=== PATIENT | female | born 1965 | race Caucasian/White ===

== ENCOUNTER → 2017-01-11 | Outpatient (RCR) | payer MEDICARE ==
--- OUTSIDE RECORDS SUMMARY | 2016-10-13 10:51 | XMS REPORT | Continuity of Care Document ---
Author Author [facility] Organization [facility] Address Unknown Phone Unavailable Care Team Providers Care Reordering Clerk Name Role Phone Liu Manzo PCP [phone] Source Comments Some departments are not documenting in the electronic medical record. If you do not see the information that you expected, contact Release of Information in the Health Information Management department at [phone] for further assistance in locating additional records.[facility] Active Allergies and Adverse Reactions Allergen Noted Date Severity Reactions Comments Celexa 09/13/2012 DIARRHEA, NAUSEA AND VOMITING, DIZZINESS Penicillins 10/09/2012 EDEMA Hands and arms Current Medications Prescription Sig. Disp. Refills Start End Date Status Date metFORMIN (GLUCOPHAGE) Take 500 mg by mouth Active 500 mg tablet twice daily with meals. meloxicam(+) (MOBIC) 15 Take 15 mg by mouth Active mg tablet daily. BLOOD SUGAR DIAGNOSTIC Use as directed as Active (CONTOUR TEST STRIPS directed. [facility]) budesonide/formoterol Inhale 2 Puffs by mouth Active (SYMBICORT) 160/4.5 mcg daily. HFAA inhalation albuterol 0.083% Inhale 2.5 mg solution as Active (PROVENTIL; VENTOLIN) 2.5 directed four times daily mg /3 mL (0.083 %) as needed. Used less nebulizer solution often than albuterol MDI, just when sick with respiratory infections (including pneumonia). albuterol (PROVENTIL; Inhale 2 Puffs by mouth Active VENTOLIN) 90 every 6 hours as needed. mcg/actuation inhaler 0-1-2-3-4x qd ca. 0-8 days each month, needed-used especially with URIs traMADol (ULTRAM) 50 mg Take 50 mg by mouth twice Active tablet daily as needed. pantoprazole DR Take 40 mg by mouth Active (PROTONIX) 40 mg tablet daily. folic acid (FOLVITE) 1 mg Take 1 Tab by mouth 90 Tab 1 03/15/20 Active tablet daily. 13 Cholecalciferol (Vitamin Take 1 Cap by mouth Active D3) (VITAMIN D-3) 2,000 daily. unit cap DULoxetine DR (CYMBALTA) Take 60 mg by mouth Active 60 mg capsule daily. METOPROLOL TARTRATE PO Take 1 Tab by mouth Active daily. cycloSPORINE(+) Place 1 Drop into or Active (RESTASIS) 0.05 % around eye(s) twice ophthalmic solution daily. loratadine (CLARITIN) 10 Take 10 mg by mouth Active mg tablet daily. montelukast (SINGULAIR) Take 10 mg by mouth as Active 10 mg tablet Needed. hydroxychloroquine Take 1 Tab by mouth twice 180 Tab 1 12/08/19 Active (PLAQUENIL) 200 mg tablet daily. 16 Active Problems Problem Noted Date Hypoglycemia 12/08/2015 Achilles tendonitis, bilateral, Rt. > Lt. 12/08/2015 Obesity 04/26/2013 Hypertension 04/26/2013 Migraine headache 04/26/2013 Spinal stenosis, lumbar 04/26/2013 Insomnia 04/26/2013 Overview: nonrestorative sleep but not primary insomnia Panic attacks 04/26/2013 Carpal tunnel syndrome, Lt. 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 Asthma 04/26/2013 GERD (gastroesophageal reflux disease) 04/26/2013 Fatigue 01/04/2013 Undifferentiated connective tissue disease (HCC) 01/04/2013 Vitamin D insufficiency 10/01/2012 Osteoarthritis 09/24/2012 Resolved Problems Problem Noted Date Resolved Date Hypercholesterolemia 04/26/2013 12/08/2015 DM (diabetes mellitus), type 2 (HCC) 04/26/2013 12/08/2015 Social History Tobacco Use Types Packs/Day Years Used Date Current Every Day Smoker Cigarettes 0.8 20 Smokeless Tobacco: Never Used Tobacco Cessation: Ready to Quit: No; Counseling Given: No Comments: Alcohol Use Drinks/Week oz/Week Comments No Last Filed Vital Signs Vital Sign Reading Time Taken Blood Pressure 126/74 12/08/2015 2:57 PM CDT Pulse 84 12/08/2015 2:57 PM CDT Temperature 37 C (98.6 F) 12/08/2015 2:57 PM CDT Respiratory Rate 20 12/08/2015 2:57 PM CDT Height 1.619 m (5' 3.75") 12/08/2015 2:57 PM CDT Weight 88.089 kg (194 lb 3.2 oz) 12/08/2015 2:57 PM CDT Body Mass Index 33.61 12/08/2015 2:57 PM CDT Oxygen Saturation 100% 12/08/2015 2:57 PM CDT Plan of Care Health Maintenance Due Date Last Done Comments Physical (Comprehensive) 1972 Exam Pertussis Vaccine 1976 Tetanus Vaccine 1982 Cervical Cancer Screening 1986 Breast Cancer Screening 2005 Colorectal Cancer 2015 Screening Influenza Vaccine 04/28/2016 Hepatitis C Screening Completed 01/04/2013 Results from Last 3 Months Not on file
[~2017-01-11] MED LIST: ERGO400C PO; HYDR200T46 PO; MELO-198 PO; MTF500T PO; MTP100TCR PO; PNT40TEC PO
== END | disposition home or self-care (01) ==
PROVIDERS: ATTEND Orthopaedic Surgery
DX: M75.22 Bicipital tendinitis, left shoulder (principal); Z98.890 Other specified postprocedural states

== ENCOUNTER 2017-02-03 10:15 | Outpatient (RCR) | payer MEDICARE | END 2017-02-03 15:26 | disposition home or self-care (01) | PROVIDERS: ATTEND Orthopaedic Surgery | DX: M75.22 Bicipital tendinitis, left shoulder (principal); Z98.890 Other specified postprocedural states ==

== ENCOUNTER → 2019-04-12 | Outpatient (CLI) | payer MEDICARE | LOC: CARD 12:22 | PROVIDERS: ATTEND Family Medicine | DX: I35.0 Nonrheumatic aortic (valve) stenosis (principal) | CPT/HCPCS: 93306 ==

== ENCOUNTER 2022-08-03 13:21 | Inpatient (IN) | payer MEDICARE ==
[~2022-08-03] VITALS: Ht 157.4 cm; Wt 102.9 kg
--- NOTE | 2022-08-03 13:56 | ED Cardiac General ---
History of Present Illness General Chief Complaint: Cardiac/General Problems Stated Complaint: HIGH BLOOD PRESSURE | EKG READING Source: patient Exam Limitations: no limitations History of Present Illness Date Seen by Provider: Aug 03, 2022 Time Seen by Provider: 13:42 Initial Comments This is a 56-year-old female with a history of hypertension, hgy-pypuggf-umblscppv diabetes, hyperlipidemia, obesity, GERD who presented to the ER from [facility] for concerns of epigastric discomfort and EKG changes. Patient states that she was following up with walk-in clinic today and was instructed to go to the emergency department due to abnormal findings on her EKG. States that she has a history of GERD and today symptoms feel just like previous episodes of acid reflux just more severe. Her symptoms started last night. She has not taken her pantoprazole or metoprolol for the past couple days. She had 1 episode of vomiting yesterday and was concerned that she may vomit if she took her medications. States that she has been through multiple providers and feels her care is disorganized at the moment. She was supposed to be started on lisinopril and a cholesterol medication but states that she was never prescribed either of these. She has not been evaluated again since she was supposed to start these 2 new medications, so she is unsure of what her baseline is other than knowing she has hypertension. Upon arrival she is feeling better, denies fever, chills, cough, shortness of breath, chest pain, epigastric pain, nausea, vomiting, abdominal pain. Allergies and Home Medications Allergies Coded Allergies: Penicillins (Verified Allergy, Unknown, 08/03/22) Patient Home Medication List Home Medication List Reviewed: Yes Cholecalciferol (Vitamin D) 400 Unit Capsule, 400 UNIT PO DAILY, (Reported) Entered as Reported by: ESPERANZA AHMADI on 09/28/13 08 Hydroxychloroquine Sulfate (Plaquenil Nf) 200 Mg Tab, 200 MG PO BID, (Reported) Entered as Reported by: ESPERANZA AHMADI on 09/28/13809 Meloxicam (Meloxicam) 7.5 Mg Tablet, 1 EACH PO DAILY, (Reported) Entered as Reported by: ESPERANZA AHMADI on 09/28/13 08 Metformin Hcl (Metformin 500 Mg) 500 Mg Tablet, 1 EACH PO BID WITH MEALS, (Reported) Entered as Reported by: ESPERANZA AHMADI on 09/28/13 0810 Metoprolol Succinate (Toprol Xl 100MG) 100 Mg Tab.sr.24h, 1 EACH PO DAILY, (Reported) Entered as Reported by: ESPERANZA AHMADI on 09/28/13 08 Pantoprazole Sodium (Protonix) 40 Mg Tablet.dr, 1 TAB PO DAILY, (Reported) Entered as Reported by: ESPERANZA AHMADI on 09/28/13 08 Review of Systems Review of Systems Constitutional: see HPI Past Iroebqj-Auxvxt-Jgmfft Hx Past Medical History Asthma Gastroesophageal Reflux Depression Physical Exam Vital Signs Vital Signs - First Documented 08/03/22 13:29 Temp 36.6 Pulse 76 Resp 21 B/P (MAP) 177/101 (126) Pulse Ox 96 O2 Delivery Room Air Capillary Refill : Height, Weight, BMI Height: 5'2" Weight: 185lbs. oz. 83.983255mw; BMI Method:Stated General Appearance: No Apparent Distress, WD/WN HEENT: PERRL/EOMI, Normal ENT Inspection, Pharynx Normal, Moist Mucous Membranes Neck: Full Range of Motion, Normal Inspection, Supple Respiratory: Lungs Clear, Normal Breath Sounds, No Accessory Muscle Use, No Respiratory Distress Cardiovascular: Regular Rate, Rhythm, No Murmur, Normal Peripheral Pulses Gastrointestinal: Normal Bowel Sounds, Non Tender, Soft Extremity: Normal Capillary Refill, Normal Inspection, Normal Range of Motion Neurologic/Psychiatric: Alert, Oriented x3, No Motor/Sensory Deficits, Normal Mood/Affect Skin: Normal Color, Warm/Dry Progress/Results/Core Measures Results/Orders Lab Results Laboratory Tests Test 08/03/22 13:36 Range/Units White Blood Count 12.7 H 4.3-11.0 10^3/uL Red Blood Count 5.22 H 3.80-5.11 10^6/uL Hemoglobin 15.7 11.5-16.0 g/dL Hematocrit 47 35-52 % Mean Corpuscular Volume 89 80-99 fL Mean Corpuscular Hemoglobin 30 25-34 pg Mean Corpuscular Hemoglobin Concent 34 32-36 g/dL Red Cell Distribution Width 12.3 10.0-14.5 % Platelet Count 355 130-400 10^3/uL Mean Platelet Volume 9.8 9.0-12.2 fL Immature Granulocyte % (Auto) 1 % Neutrophils (%) (Auto) 74 42-75 % Lymphocytes (%) (Auto) 19 12-44 % Monocytes (%) (Auto) 7 0-12 % Eosinophils (%) (Auto) 0 0-10 % Basophils (%) (Auto) 0 0-10 % Neutrophils # (Auto) 9.4 H 1.8-7.8 10^3/uL Lymphocytes # (Auto) 2.4 1.0-4.0 10^3/uL Monocytes # (Auto) 0.9 0.0-1.0 10^3/uL Eosinophils # (Auto) 0.0 0.0-0.3 10^3/uL Basophils # (Auto) 0.1 0.0-0.1 10^3/uL Immature Granulocyte # (Auto) 0.1 0.0-0.1 10^3/uL Prothrombin Time 13.2 12.2-14.7 SEC INR Comment 1.0 0.8-1.4 Activated Partial Thromboplast Time 26 24-35 SEC D-Dimer < 0.27 0.00-0.49 UG/ML Sodium Level 135 135-145 MMOL/L Potassium Level 4.0 3.6-5.0 MMOL/L Chloride Level 100 98-107 MMOL/L Carbon Dioxide Level 25 21-32 MMOL/L Anion Gap 10 5-14 MMOL/L Blood Urea Nitrogen 7 7-18 MG/DL Creatinine 0.69 0.60-1.30 MG/DL Estimat Glomerular Filtration Rate 102 BUN/Creatinine Ratio 10 Glucose Level 135 H 70-105 MG/DL Calcium Level 9.5 8.5-10.1 MG/DL Corrected Calcium 9.5 8.5-10.1 MG/DL Magnesium Level 1.7 1.6-2.4 MG/DL Total Bilirubin 0.4 0.1-1.0 MG/DL Aspartate Amino Transf (AST/SGOT) 111 H 5-34 U/L Alanine Aminotransferase (ALT/SGPT) 47 0-55 U/L Alkaline Phosphatase 84 40-136 U/L Total Creatine Kinase 1404 H 29-168 U/L Creatine Kinase MB 144.1 *H <6.6 NG/ML Myoglobin 249.8 H 10.0-92.0 NG/ML Troponin I 13.202 *H <0.028 NG/ML B-Type Natriuretic Peptide 69.9 <100.0 PG/ML Total Protein 7.3 6.4-8.2 GM/DL Albumin 4.0 3.2-4.5 GM/DL Lipase 22 8-78 U/L My Orders Orders - GARY BURGOS LABOR RELATIONS TEACHER Cbc With Automated Diff (08/03/22 13:49) Magnesium (08/03/22 13:49) Chest 1 View, Ap/Pa Only (08/03/22 13:49) Ekg Tracing (08/03/22 13:49) Comprehensive Metabolic Panel (08/03/22 13:49) Myoglobin Serum (08/03/22 13:49) Protime With Inr (08/03/22 13:49) Partial Thromboplastin Time (08/03/22 13:49) O2 (08/03/22 13:49) Monitor-Rhythm Ecg Trace Only (08/03/22 13:49) Ed Iv/Invasive Line Start (08/03/22 13:49) Creatine Kinase (08/03/22 13:49) Creatine Kinase Mb (08/03/22 13:49) Lipase (08/03/22 13:49) Bnp [place] (08/03/22 13:49) Fibrin Degradation Products (08/03/22 13:49) Troponin I [place] (08/03/22 13:49) Metoprolol Tartrate Injection (Lopressor (08/03/22 14:00) Pantoprazole Injection (Protonix Injecti (08/03/22 14:00) Clopidogrel Tablet (Plavix Tablet) (08/03/22 15:00) Enoxaparin Injection (Lovenox Injection) (08/03/22 15:00) Aspirin Chewable Tablet (Baby Aspirin Ch (08/03/22 15:15) Ed Admission (Communication) (08/03/22 15:04) Medications Given in ED Current Medications Medications Dose Ordered Sig/[place] Route Start Time Stop Time Status Last Admin Dose Admin Enoxaparin Sodium 90 mg ONCE ONCE SC 08/03/22 15:00 08/03/22 15:01 DC 08/03/22 14:59 90 MG Metoprolol Tartrate 5 mg ONCE ONCE IV 08/03/22 14:00 08/03/22 14:01 DC 08/03/22 14:00 5 MG Pantoprazole 40 mg ONCE ONCE IV 08/03/22 14:00 08/03/22 14:01 DC 08/03/22 13:59 40 MG Vital Signs/I&O 08/03/22 13:29 Temp 36.6 Pulse 76 Resp 21 B/P (MAP) 177/101 (126) Pulse Ox 96 O2 Delivery Room Air Progress Progress Note : Progress Note Upon arrival reports no epigastric pain, chest pain, nor acid reflux. Reports symptoms have resolved. She has significant coronary risk HTN, HLD, DM, Obesity, and smoker. States she was to be started on Lisinopril and a Statin but was never ordered. She is hypertensive in ED, but has not taken her medications in 2 days. Also has not taken Protonix in 2 days which may also attribute to symptoms. However with coronary risk will initiate cardiac workup. EKG unremarkable. Labs show significantly elevated cardiac markers including troponin at 13. Discussed with Dr. Menchaca with cardiology, would like pt. to have Lovenox 1mg/kg and ASA 324mg. Will plan for cardiac cath. Would like repeat troponin in one hour. Updated patient regarding plan for admission and likely cardiac catheterization, she is agreeable with plan of care at this time. Initial ECG Impression Date: Aug 03, 2022 Initial ECG Impression Time: 14:17 Initial ECG Rate: 66 Initial ECG Rhythm: Normal Sinus Initial ECG Intervals: Normal Initial ECG Impression: Nonspecific Changes Initial ECG Comparisson: No Previous ECG Available Diagnostic Imaging Diagonstic Imaging: Xray Plain Films/CT/US/NM/MRI: chest Comments [facility]. [place], [place] NAME: WILDAAMANDA R [facility] REC#: [id number] PT STATUS: ADM IN : 1965 PHYSICIAN: GARY BURGOS APRN ADMIT DATE: 08/03/22/ICU Signed Date of Exam:08/03/22 CHEST 1 VIEW, AP/PA ONLY INDICATION: Chest pain. Frontal chest obtained at 2:19 p.m. and compared with 09/05/2012. FINDINGS: Heart is borderline in size. Mediastinal silhouette is unremarkable. There is mild central vascular prominence, without discrete consolidation or pneumothorax or pleural fluid. IMPRESSION: Mild central vascular prominence without focal consolidation or pneumothorax or pleural fluid. Dictated by: Dictated on workstation # [id number] Dict: 08/03/22 1424 Trans: 08/03/22 1718 [id number] Interpreted by: SINDI VALERO MD Electronically signed by: SINDI VALERO MD 08/03/22 1718 Reviewed: Reviewed by Me Departure Communication (Admissions) Time/Spoke to Admitting Phy: 14:45 Dr. Joe Time/Spoke to Consulting Phy: 14:40 Dr. Menchaca Impression Primary Impression: GERD (gastroesophageal reflux disease) Disposition: ADMITTED INPATIENT Condition: Stable Admissions Decision to Admit Reason: Admit from ER (General) Decision to Admit/Date: Aug 03, 2022 Time/Decision to Admit Time: 14:40 Departure-Patient Inst. Referrals: [facility] (PCP/Family) Primary Care Physician Copy Copies To 1: [facility]/GARY ALMEIDA LABOR RELATIONS TEACHER Aug 03, 2022 13:56
[2022-08-03] MEDS ORDERED: PANTOPRAZOLE 40 MG (PROTONIX) VIAL IV ONE (14:00)
[2022-08-03] MEDS ORDERED: meTOprolol 5 MG/5 ML (LOPRESSOR) VIAL IV ONE (14:00)
[2022-08-03 14:16] LABS: BASOPHILS # (AUTO) 0.1 10^3/uL (0.0-0.1); BASOPHILS % (AUTO) 0 % (0-10); EOSINOPHILS % (AUTO) 0 % (0-10); HEMATOCRIT 47 % (35-52); HEMOGLOBIN 15.7 g/dL (11.5-16.0); LYMPHOCYTES # (AUTO) 2.4 10^3/uL (1.0-4.0); LYMPHOCYTES % (AUTO) 19 % (12-44); MEAN CORPUSCULAR HEMOGLOBIN 30 pg (25-34); MEAN CORPUSCULAR HGB CONC 34 g/dL (32-36); MEAN CORPUSCULAR VOLUME 89 fL (80-99); MEAN PLATELET VOLUME 9.8 fL (9.0-12.2); MONOCYTES # (AUTO) 0.9 10^3/uL (0.0-1.0); MONOCYTES % (AUTO) 7 % (0-12); NEUTROPHILS # (AUTO) 9.4 10^3/uL (1.8-7.8); NEUTROPHILS % (AUTO) 74 % (42-75); PLATELET COUNT 355 10^3/uL (130-400); WHITE BLOOD COUNT 12.7 10^3/uL (4.3-11.0)
[2022-08-03 14:21] LABS: CALCIUM 9.5 MG/DL (8.5-10.1)
[2022-08-03 14:22] LABS: PROTHROMBIN TIME PATIENT 13.2 SEC (12.2-14.7)
[2022-08-03 14:23] LABS: TOTAL PROTEIN 7.3 GM/DL (6.4-8.2)
[2022-08-03 14:25] LABS: BILIRUBIN,TOTAL 0.4 MG/DL (0.1-1.0)
[2022-08-03 14:26] LABS: CREATININE SERUM 0.69 MG/DL (0.60-1.30)
--- NOTE | 2022-08-03 14:27 | Diagnostic Imaging Report ---
INDICATION: Chest pain. Frontal chest obtained at 2:19 p.m. and compared with 09/05/2012. FINDINGS: Heart is borderline in size. Mediastinal silhouette is unremarkable. There is mild central vascular prominence, without discrete consolidation or pneumothorax or pleural fluid. IMPRESSION: Mild central vascular prominence without focal consolidation or pneumothorax or pleural fluid. Dictated by: Dictated on workstation # [id number]
[2022-08-03 14:29] LABS: MAGNESIUM 1.7 MG/DL (1.6-2.4)
[2022-08-03 14:46] LABS: CREATINE KINASE MB 144.1 NG/ML (<6.6)
[2022-08-03] MEDS ORDERED: CLOPIDOGREL 300 MG (PLAVIX) TABLET PO ONE (15:00)
[2022-08-03] MEDS ORDERED: ENOXAPARIN 100 MG/1 ML (LOVENOX) SYR SC ONE (15:00)
[2022-08-03] MEDS ORDERED: ASPIRIN 81 MG CHEW (CHILDREN'S ASA) PO ONE (15:15)
[2022-08-03] MEDS ORDERED: LIDOCAINE 1% INJ 30 ML (XYLOCAINE) VIAL ONE (16:17)
[2022-08-03] MEDS ORDERED: NS IV 1000 ML 1,000 ML ONE (16:17)
[2022-08-03] MEDS ORDERED: HEParin (CATH LAB) 2,000 ML IV ONE (16:17)
[2022-08-03 16:45] VITALS: BP 153/101
[2022-08-03] MEDS ORDERED: PATIENT MAY USE OWN MEDS, ALL PO SCH (16:45)
--- NOTE | 2022-08-03 17:30 | Consultation-Cardiology ---
HPI-Cardiology Cardiology Consultation: Date of Consultation 08/03/22 Date of Admission 08/03/22 Attending Physician [facility] Admitting Physician Admitting Physician: Yanna Joe MD Attending Physician: Yanna Joe MD Consulting Physician DAHLIA CORTES JR, MD HPI: Time Seen by a Provider: 17:21 Chief Complaint: REASON FOR CONSULTATION: NSTEMI. I had the pleasure of seeing Ev in the intensive care unit at [facility] in [place], [place] afternoon. She has no known history of coronary artery disease but has cardiac respecters of hypertension, hyperlipidemia and cigarette smoking. This past weekend she started developing some upper respiratory symptoms. She had some congestion and a sore throat. She thought that she may have contracted the flu. The symptoms persisted over the weekend and into Monday morning. Then yesterday she developed a burning sensation in her jaw bilaterally that radiated down towards her throat and into her chest. She took some Tylenol Cold medicine which seemed to help somewhat. She spent most of the day in bed. She drank some water but this did not change the discomfort. She thought the symptoms were related to her esophageal reflux disease. At 1 point this seemed to be radiating into her arms. She did not seek immediate medical attention. Then this morning she went to [facility] who did an EKG and sent her to the emergency room. During her evaluation in the emergency room, she was found to have an abnormal troponin level and a cardiology consultation was requested. She was treated with aspirin and therapeutic dose of subcutaneous Lovenox in the emergency room. She still have some mild discomfort in her chest at this time. She has chronic dyspnea on exertion which she relates is due to her obesity, cigarette smoke and lack of exercise. She denies paroxysmal nocturnal dyspnea, tinea, palpitations, lightheadedness, syncope, or ankle edema. Certain portions of this document may have been dictated utilizing voice recognition technology. Inherent to this technology, typographical and gra mmatical errors may exist. As much as I am diligent to identify and correct these mistakes, some errors may remain in the document. Review of Systems-Cardiology Review of Systems Other comments Review of 10 organ systems is as per the history of present illness, otherwise negative. NJA-Ijofrg-[place] Hx Patient Social History Marrital Status: Smoking Status: Current Everyday Smoker Have you traveled recently?: No Alcohol Use?: No Pt feels they are or have been: No Tobacco type used: Cigarettes Past Medical History PMH As described under Assessment. Family Medical History Family Medical History: The patient does not know of any family history of premature coronary artery disease in first-degree relatives. Allergies and Home Medications Allergies Coded Allergies: Penicillins (Verified Allergy, Unknown, 08/03/22) Patient Home Medication List Home Medication List Reviewed: Yes Cholecalciferol (Vitamin D) 400 Unit Capsule, 400 UNIT PO DAILY, (Reported) Entered as Reported by: ESPERANZA AHMADI on 09/28/13809 Hydroxychloroquine Sulfate (Plaquenil Nf) 200 Mg Tab, 200 MG PO BID, (Reported) Entered as Reported by: ESPERANZA AHMADI on 09/28/13809 Meloxicam (Meloxicam) 7.5 Mg Tablet, 1 EACH PO DAILY, (Reported) Entered as Reported by: ESPERANZA AHMADI on 09/28/13809 Metformin Hcl (Metformin 500 Mg) 500 Mg Tablet, 1 EACH PO BID WITH MEALS, (Reported) Entered as Reported by: ESPERANZA AHMADI on 09/28/13809 Metoprolol Succinate (Toprol Xl 100MG) 100 Mg Tab.sr.24h, 1 EACH PO DAILY, (Reported) Entered as Reported by: ESPERANZA AHMADI on 09/28/13809 Pantoprazole Sodium (Protonix) 40 Mg Tablet.dr, 1 TAB PO DAILY, (Reported) Entered as Reported by: ESPERANZA AHMADI on 09/28/13809 Exam Vital Signs Vital Signs Date Time Temp Pulse Resp B/P (MAP) Pulse Ox O2 Delivery O2 Flow Rate FiO2 08/03/22 17:08 68 08/03/22 17:00 145/100 (115) 92 Room Air 08/03/22 16:45 21 08/03/22 13:29 36.6 Physical Exam General: Alert. No acute distress. Well nourished and appears stated age. She is obese. Eye: Extraocular movements are intact. Conjunctivae are clear. There are no xanthelasma. HENT: Normocephalic. Atraumatic. Carotid pulsations 2/2 without bruits. Neck: Jugular venous pressure does not appear elevated. No thyromegaly appreciated. Respiratory: Lungs are clear to auscultation. Respirations are non-labored. Breath sounds are equal. Symmetrical chest wall expansion. Cardiovascular: Normal rate. Regular rhythm. No murmur. No gallop. Point of maximal impulse is not appear displaced. Good pulses equal in all extremities. No edema. Gastrointestinal: Soft. Normal bowel sounds. Skin: Skin turgor is normal. There is no pallor. Musculoskeletal: No kyphosis or scoliosis appreciated. Neurologic: Alert and oriented to person, place, time. Cranial nerves 3-12 appear grossly intact. The patient has good motor tone strength in the upper and lower extremities bilaterally. Psychiatric: Cooperative. Appropriate mood & affect. Labs Laboratory Tests Test 08/03/22 13:36 08/03/22 15:36 08/03/22 17:57 Range/Units White Blood Count 12.7 H 4.3-11.0 10^3/uL Red Blood Count 5.22 H 3.80-5.11 10^6/uL Hemoglobin 15.7 11.5-16.0 g/dL Hematocrit 47 35-52 % Mean Corpuscular Volume 89 80-99 fL Mean Corpuscular Hemoglobin 30 25-34 pg Mean Corpuscular Hemoglobin Concent 34 32-36 g/dL Red Cell Distribution Width 12.3 10.0-14.5 % Platelet Count 355 130-400 10^3/uL Mean Platelet Volume 9.8 9.0-12.2 fL Immature Granulocyte % (Auto) 1 % Neutrophils (%) (Auto) 74 42-75 % Lymphocytes (%) (Auto) 19 12-44 % Monocytes (%) (Auto) 7 0-12 % Eosinophils (%) (Auto) 0 0-10 % Basophils (%) (Auto) 0 0-10 % Neutrophils # (Auto) 9.4 H 1.8-7.8 10^3/uL Lymphocytes # (Auto) 2.4 1.0-4.0 10^3/uL Monocytes # (Auto) 0.9 0.0-1.0 10^3/uL Eosinophils # (Auto) 0.0 0.0-0.3 10^3/uL Basophils # (Auto) 0.1 0.0-0.1 10^3/uL Immature Granulocyte # (Auto) 0.1 0.0-0.1 10^3/uL Prothrombin Time 13.2 12.2-14.7 SEC INR Comment 1.0 0.8-1.4 Activated Partial Thromboplast Time 26 24-35 SEC D-Dimer < 0.27 0.00-0.49 UG/ML Sodium Level 135 135-145 MMOL/L Potassium Level 4.0 3.6-5.0 MMOL/L Chloride Level 100 98-107 MMOL/L Carbon Dioxide Level 25 21-32 MMOL/L Anion Gap 10 5-14 MMOL/L Blood Urea Nitrogen 7 7-18 MG/DL Creatinine 0.69 0.60-1.30 MG/DL Estimat Glomerular Filtration Rate 102 BUN/Creatinine Ratio 10 Glucose Level 135 H 70-105 MG/DL Calcium Level 9.5 8.5-10.1 MG/DL Corrected Calcium 9.5 8.5-10.1 MG/DL Magnesium Level 1.7 1.6-2.4 MG/DL Total Bilirubin 0.4 0.1-1.0 MG/DL Aspartate Amino Transf (AST/SGOT) 111 H 5-34 U/L Alanine Aminotransferase (ALT/SGPT) 47 0-55 U/L Alkaline Phosphatase 84 40-136 U/L Total Creatine Kinase 1404 H 29-168 U/L Creatine Kinase MB 144.1 *H <6.6 NG/ML Myoglobin 249.8 H 10.0-92.0 NG/ML Troponin I 13.202 *H 17.757 *H <0.028 NG/ML B-Type Natriuretic Peptide 69.9 <100.0 PG/ML Total Protein 7.3 6.4-8.2 GM/DL Albumin 4.0 3.2-4.5 GM/DL Lipase 22 8-78 U/L Triglycerides Level 128 <150 MG/DL Cholesterol Level 206 H < 200 MG/DL LDL Cholesterol Direct 151 H 1-129 MG/DL VLDL Cholesterol 26 5-40 MG/DL HDL Cholesterol 43 40-60 MG/DL Thyroid Stimulating Hormone (TSH) 1.96 0.35-4.94 UIU/ML ECG Impression ECG Comment Sinus rhythm with possible old inferior myocardial infarction. Diagnosis/Problems Diagnosis/Problems (1) Non-ST elevation myocardial infarction (NSTEMI), initial care episode Assessment & Plan: She appears to be suffering a non-ST elevation myocardial infarction. Her troponin elevation is quite significant. Fortunately, her echocardiogram shows a normal ejection fraction. Her electrocardiogram shows possible old inferior myocardial infarction but without acute ischemic changes. I recommend further evaluation with a cardiac catheterization. I have explained benefits and risks of the procedure to the patient and she is in agreement to proceed and has signed the consent form. She will be started on aspirin, beta- sharmaine and intensive dose statin medication (2) Primary hypertension Assessment & Plan: I will start her on beta-sharmaine in light of the acute myocardial infarction (3) Mixed hyperlipidemia Assessment & Plan: I will start her on intensive dose statin medication in light of the probable non-ST elevation myocardial infarction. (4) Gastroesophageal reflux disease without esophagitis Assessment & Plan: Continue pantoprazole. (5) Cigarette smoker Assessment & Plan: She needs to quit smoking. She has been counseled in this regard. (6) Morbid obesity Assessment & Plan: She needs to work on weight loss. She has been counseled in this regard. DAHLIA CORTES JR, MD Aug 03, 2022 17:30
[2022-08-03] MEDS ORDERED: PANTOPRAZOLE 40 MG (PROTONIX) TAB PO NR (18:00)
[2022-08-03] MEDS ORDERED: fentaNYL INJ 100 MCG/2 ML AMP ONE (18:16)
[2022-08-03] MEDS ORDERED: VERAPAMIL 5 MG/2 ML (CALAN) VIAL IV ONE (18:16)
[2022-08-03] MEDS ORDERED: MIDAZOLAM 5 MG/5 ML (VERSED) VIAL ONE (18:16)
[2022-08-03] MEDS ORDERED: HEParin 1000 UNIT/ML (10ML VIAL) FOR BOLUS ONE (18:16)
--- NOTE | 2022-08-03 18:16 | Pre-Op Note & Conscious Sedat ---
Pre-Operative Progress Note Date H&P Reviewed: Aug 03, 2022 Time H&P Reviewed: 18:15 History & Physical: H&P Reviewed, Patient Examed, No changes noted Changes from last HP No change Pre-Op Diagnosis: NSTEMI Conscious Sedation Pre-Proced ASA Score 2 For ASA 3 and 4: Consider anesthesia and medical clearance. Also, for patients with a history of failed moderate sedation consider anesthesia. Airway Lungs Heart ASA score ASA 1: a normal healthy patient ASA 2: a patient with a mild systemic disease (mid diabetes, controlled hypertension, obesity ASA 3: a patient with a severe systemic disease that limits activity (angina, COPD, prior Myocardial infarction) ASA 4: a patient with an incapacitating disease that is a constant threat to life (CHF, renal failure) ASA 5: a moribund patient not expected to survive 24 hrs. (ruptured aneurysm) ASA 6: a declared brain- patient whose organs are being harvested. For emergent operations, add the letter E after the classification Mallampati Classification Grade 2 Sedation Plan Analgesia, Amnesia, Plan communicated to team members, Discussed options with patient/fam, Discussed risks with patient/fam The patient is an appropriate candidate to undergo the planned procedure, sedation, and anesthesia. The patient immediately re-assessed prior to indication. Given the patient's current clinical status, she is considered moderately frail. She has no history of heart failure. DAHLIA CORTES JR, MD Aug 03, 2022 18:16
[2022-08-03] MEDS ORDERED: NITRO DRIP 25000 MCG/D5W 250 ML IV ONE (18:17)
[2022-08-03] MEDS ORDERED: TICAGRELOR 90 MG TABLET (BRILINTA) PO ONE (19:23)
[2022-08-03] MEDS ORDERED: NS IV 1000 ML 1,000 ML IV SCH (19:30)
--- NOTE | 2022-08-03 19:55 | Cardiac Cath Report ---
CARDIAC CATHETERIZATION DATE OF PROCEDURE: 08/03/2020 INDICATION: Non-ST elevation myocardial infarction. HISTORY: The patient is a 56 year old female with no previously known history of coronary artery disease with cardiac risk factors of hypertension, hyperlipidemia and cigarette smoking. She presented to the hospital with a 1 day history of chest and jaw pain. She was found to have an elevated troponin level but no ischemic changes on her electrocardiogram. A follow-up troponin level was even higher. As such, she is now referred for urgent cardiac catheterization. Given the patient's current clinical status, she is considered moderately frail. She has no history of heart failure PROCEDURES PERFORMED: 1. Left heart catheterization with hemodynamic measurements. 2. Diagnostic telida coronary angiography. 3. Drug-eluting stent placement to left circumflex coronary artery. This was the ischemia related vessel for the acute myocardial infarction. PROCEDURE DESCRIPTION: After informed consent and in the fasting state, left heart catheterization was performed through the right radial artery utilizing a 6 [place] system by percutaneous approach. Standard 5 [place] Radha catheters were utilized for the diagnostic portion of the procedure. A 6 [place] CLS 3 guide catheter was utilized for the percutaneous groin intervention. All catheters were exchanged over a guidewire. Following the procedure, a vascular band was applied to the radial artery access site and the sheath was removed with good hemostasis. RESULTS: HEMODYNAMICS: The aortic pressure was 145/81 mmHg. The left ventricular pressure was 162/0 mmHg with a left ventricular end-diastolic pressure of 14 mmHg. There was no significant pressure gradient upon pullback across the aortic valve. CORONARY ANGIOGRAPHY: Left main coronary artery: Free of significant disease. Left anterior descending coronary artery: There was a 40% stenosis in the proximal vessel with NELY-3 flow. The distal vessel tapered at the apex. There were 2 small diagonal branches which were free of significant disease Left circumflex coronary artery: Totally occluded in the distal segment with NELY 0 flow with some evidence of dye staining consistent with acute thrombotic occlusion. This was most likely the ischemia related vessel for the acute myocardial infarction. There was a moderate sized first obtuse marginal branch which was free of significant disease. Right coronary artery: Dominant and there was a 40% stenosis in the midsegment with NELY-3 flow. PERCUTANEOUS CORONARY INTERVENTION: Percutaneous coronary intervention was carried out on the distal left circumflex through the CLS 3 guide catheter. The lesion was successfully crossed with a Whisper medium support guidewire. I subsequently performed coronary angioplasty with a 2 x 12 mm Trek balloon at a pressure of 6 vicky for several inflations. Flow was restored. I subsequently deployed a 2 x 22 mm drug-eluting Resolute Van stent at a pressure of 16 vicky. Following stent placement, there was 0% residual stenosis with NELY-3 flow. IMPRESSION: 1. Systemic hypertension with mildly elevated left ventricular end-diastolic pressure. 2. Total thrombotic occlusion of the distal left circumflex coronary artery. This was the ischemia related vessel for the acute myocardial infarction. 3. Status post drug-eluting stent placement to the distal left circumflex coronary artery with a 2 x 22 mm Resolute Van stent with 0% residual stenosis and NELY-3 flow. 4. There is mild residual disease in the proximal left anterior descending and mid right coronary arteries as outlined above. 5. The patient is known to have normal ventricular systolic function with an estimated ejection fraction of 55-60% by echocardiogram performed earlier today. Certain portions of this document may have been dictated utilizing voice recognition technology. Inherent to this technology, typographical and grammatical errors may exist. As much as I am diligent to identify and correct these mistakes, some errors may remain in the document. DAHLIA CORTES JR, MD Aug 03, 2022 19:55
[2022-08-03] MEDS: TICAGRELOR 90 MG TABLET (BRILINTA) PO SCH (20:51)
[2022-08-03] MEDS ORDERED: ROSUVASTATIN 20 MG (CRESTOR) TABLET PO SCH (21:00)
[2022-08-03] MEDS ORDERED: TICAGRELOR 90 MG TABLET (BRILINTA) PO SCH (21:00)
[2022-08-03] MEDS ORDERED: DULoxetine 30 MG (CYMBALTA) CAP PO SCH (22:30)
[2022-08-04 05:22] LABS: BASOPHILS # (AUTO) 0.1 10^3/uL (0.0-0.1); BASOPHILS % (AUTO) 1 % (0-10); EOSINOPHILS % (AUTO) 0 % (0-10); HEMATOCRIT 43 % (35-52); HEMOGLOBIN 14.8 g/dL (11.5-16.0); LYMPHOCYTES # (AUTO) 2.3 10^3/uL (1.0-4.0); LYMPHOCYTES % (AUTO) 19 % (12-44); MEAN CORPUSCULAR HEMOGLOBIN 31 pg (25-34); MEAN CORPUSCULAR HGB CONC 35 g/dL (32-36); MEAN CORPUSCULAR VOLUME 88 fL (80-99); MEAN PLATELET VOLUME 9.8 fL (9.0-12.2); MONOCYTES # (AUTO) 0.7 10^3/uL (0.0-1.0); MONOCYTES % (AUTO) 6 % (0-12); NEUTROPHILS # (AUTO) 9.1 10^3/uL (1.8-7.8); NEUTROPHILS % (AUTO) 74 % (42-75); PLATELET COUNT 306 10^3/uL (130-400); WHITE BLOOD COUNT 12.3 10^3/uL (4.3-11.0)
[2022-08-04 05:38] LABS: POTASSIUM 3.9 MMOL/L (3.6-5.0)
[2022-08-04 05:43] LABS: CREATININE SERUM 0.74 MG/DL (0.60-1.30)
[2022-08-04] MEDS: TICAGRELOR 90 MG TABLET (BRILINTA) PO SCH (06:22)
[2022-08-04] MEDS ORDERED: FLU QUADRIvalent (6 months+) 60 mcg/0.5 ml 2022-23 (Fluzone) IM ONE (07:15)
[2022-08-04] MEDS: NICOTINE 21 MG (NICODERM) PATCH TD SCH ×2 (08:15→08:17)
[2022-08-04] MEDS ORDERED: DULoxetine 30 MG (CYMBALTA) CAP PO SCH (09:00)
[2022-08-04] MEDS ORDERED: ASPIRIN E.C. 81 MG (ECOTRIN) TAB PO SCH (09:00)
[2022-08-04] MEDS ORDERED: PANTOPRAZOLE 40 MG (PROTONIX) TAB PO SCH (09:00)
[2022-08-04] MEDS ORDERED: MELO15TA39 PO (09:10)
[2022-08-04] MEDS ORDERED: CHOL200025 PO (09:10)
[2022-08-04] MEDS ORDERED: METO50TA7 PO (09:10)
[2022-08-04] MEDS ORDERED: DULO30CA49 PO (09:10)
[2022-08-04] MEDS ORDERED: RT-ALBUTEROL/IPRATROPIUM 3 ML (DUONEB) VIAL INH SCH (10:00)
--- NOTE | 2022-08-04 10:13 | Cardiology Progress Note ---
Progress Note-Cardiology Events since last exam Date Seen by Provider: Aug 04, 2022 Time Seen by Provider: 10:09 Events since last exam I am following her due to NSTEMI which was treated with 1 drug-eluting stent to the distal left circumflex coronary artery. She has mild residual disease in the left anterior descending and right coronary arteries. She denies any further chest or neck discomfort. She denies dyspnea, palpitations, syncope, or ankle edema. Certain portions of this document may have been dictated utilizing voice recognition technology. Inherent to this technology, typographical and gramm atical errors may exist. As much as I am diligent to identify and correct these mistakes, some errors may remain in the document. Vitals Last set of Vitals Signs Vital Signs 08/04/22 08/04/22 03:00 08:00 Pulse 76 Resp 20 B/P (MAP) 161/108 (125) Pulse Ox 93 O2 Delivery Room Air O2 Flow Rate 1.00 Labs Labs Laboratory Tests 08/03/22 13:36 08/04/22 04:58 Exam Vital Signs Vital Signs Date Time Temp Pulse Resp B/P (MAP) Pulse Ox O2 Delivery O2 Flow Rate FiO2 08/04/22 08:00 76 20 161/108 (125) 93 Room Air 08/04/22 07:41 36.0 08/04/22 03:00 1.00 Physical Exam General: Alert. No acute distress. She is obese. Eye: No xanthelasma. HENT: Normocephalic. Neck: Jugular venous pressure does not appear elevated. Respiratory: Lungs are clear to auscultation. Respirations are non-labored. Breath sounds are equal. Symmetrical chest wall expansion. Cardiovascular: Normal rate. Regular rhythm. No murmur. No gallop. No edema. Gastrointestinal: Soft. Normal bowel sounds. Skin: Warm. Dry. Neurologic: Alert and oriented to person, place, time. Cranial nerves 3-11 grossly intact. Psychiatric: Cooperative. Appropriate mood & affect. Labs Laboratory Tests Test 08/03/22 13:36 08/03/22 15:36 08/03/22 17:57 08/04/22 04:58 Range/Units White Blood Count 12.7 H 12.3 H 4.3-11.0 10^3/uL Red Blood Count 5.22 H 4.85 3.80-5.11 10^6/uL Hemoglobin 15.7 14.8 11.5-16.0 g/dL Hematocrit 47 43 35-52 % Mean Corpuscular Volume 89 88 80-99 fL Mean Corpuscular Hemoglobin 30 31 25-34 pg Mean Corpuscular Hemoglobin Concent 34 35 32-36 g/dL Red Cell Distribution Width 12.3 12.5 10.0-14.5 % Platelet Count 355 306 130-400 10^3/uL Mean Platelet Volume 9.8 9.8 9.0-12.2 fL Immature Granulocyte % (Auto) 1 1 % Neutrophils (%) (Auto) 74 74 42-75 % Lymphocytes (%) (Auto) 19 19 12-44 % Monocytes (%) (Auto) 7 6 0-12 % Eosinophils (%) (Auto) 0 0 0-10 % Basophils (%) (Auto) 0 1 0-10 % Neutrophils # (Auto) 9.4 H 9.1 H 1.8-7.8 10^3/uL Lymphocytes # (Auto) 2.4 2.3 1.0-4.0 10^3/uL Monocytes # (Auto) 0.9 0.7 0.0-1.0 10^3/uL Eosinophils # (Auto) 0.0 0.0 0.0-0.3 10^3/uL Basophils # (Auto) 0.1 0.1 0.0-0.1 10^3/uL Immature Granulocyte # (Auto) 0.1 0.1 0.0-0.1 10^3/uL Prothrombin Time 13.2 12.2-14.7 SEC INR Comment 1.0 0.8-1.4 Activated Partial Thromboplast Time 26 24-35 SEC D-Dimer < 0.27 0.00-0.49 UG/ML Sodium Level 135 133 L 135-145 MMOL/L Potassium Level 4.0 3.9 3.6-5.0 MMOL/L Chloride Level 100 104 98-107 MMOL/L Carbon Dioxide Level 25 20 L 21-32 MMOL/L Anion Gap 10 9 5-14 MMOL/L Blood Urea Nitrogen 7 6 L 7-18 MG/DL Creatinine 0.69 0.74 0.60-1.30 MG/DL Estimat Glomerular Filtration Rate 102 95 BUN/Creatinine Ratio 10 8 Glucose Level 135 H 204 H 70-105 MG/DL Calcium Level 9.5 9.0 8.5-10.1 MG/DL Corrected Calcium 9.5 8.5-10.1 MG/DL Magnesium Level 1.7 1.6-2.4 MG/DL Total Bilirubin 0.4 0.1-1.0 MG/DL Aspartate Amino Transf (AST/SGOT) 111 H 5-34 U/L Alanine Aminotransferase (ALT/SGPT) 47 0-55 U/L Alkaline Phosphatase 84 40-136 U/L Total Creatine Kinase 1404 H 29-168 U/L Creatine Kinase MB 144.1 *H <6.6 NG/ML Myoglobin 249.8 H 10.0-92.0 NG/ML Troponin I 13.202 *H 17.757 *H 23.143 *H <0.028 NG/ML B-Type Natriuretic Peptide 69.9 <100.0 PG/ML Total Protein 7.3 6.4-8.2 GM/DL Albumin 4.0 3.2-4.5 GM/DL Lipase 22 8-78 U/L Triglycerides Level 128 <150 MG/DL Cholesterol Level 206 H < 200 MG/DL LDL Cholesterol Direct 151 H 1-129 MG/DL VLDL Cholesterol 26 5-40 MG/DL HDL Cholesterol 43 40-60 MG/DL Thyroid Stimulating Hormone (TSH) 1.96 0.35-4.94 UIU/ML Influenza Type A (RT-PCR) Not Detected Not Detecte Influenza Type B (RT-PCR) Not Detected Not Detecte SARS-CoV-2 RNA (RT-PCR) Not Detected Not Detecte Diagnosis/Problems Diagnosis/Problems (1) Non-ST elevation myocardial infarction (NSTEMI), initial care episode Assessment & Plan: As above, this was due to acute thrombotic occlusion of the distal left circumflex coronary artery that was treated with 1 drug-eluting stent. She has mild residual disease in the left anterior descending and right coronary arteries. Her ejection fraction is normal. She has no recurrent angina. She has not been having any significant ventricular arrhythmias. From a cardiac standpoint, she can be discharged to home. I will send prescriptions for her cardiac medications to her pharmacy. (2) Primary hypertension Assessment & Plan: I changed her metoprolol succinate over to carvedilol. (3) Mixed hyperlipidemia Assessment & Plan: Continue intensive dose statin medication in light of the probable non-ST elevation myocardial infarction. (4) Gastroesophageal reflux disease without esophagitis Assessment & Plan: Continue pantoprazole. I suspect her neck discomfort was due to the myocardial infarction and not her esophageal reflux disease. (5) Cigarette smoker Assessment & Plan: She needs to quit smoking. She has been counseled in this regard. (6) Morbid obesity Assessment & Plan: She needs to work on weight loss. She has been counseled in this regard. (7) Coronary artery disease with unstable angina pectoris Assessment & Plan: As above. DAHLIA CORTES JR, MD Aug 04, 2022 10:13
[2022-08-04] MEDS ORDERED: CARV6.252 PO (10:17)
[2022-08-04] MEDS ORDERED: TICA90TA PO (10:17)
[2022-08-04] MEDS ORDERED: ROSU20TA32 PO (10:17)
[2022-08-04] MEDS ORDERED: ASPI-1238 PO (10:17)
[2022-08-04] MEDS ORDERED: METF-397 PO (10:51)
[2022-08-04] MEDS ORDERED: PANT40TA52 PO (10:51)
[2022-08-04] MEDS ORDERED: HYDR200T46 PO (10:51)
[2022-08-04] MEDS ORDERED: NICO1PAT34 TD (12:01)
[2022-08-04] MEDS ORDERED: ALBU8.5H6 INH (12:01)
--- NOTE | 2022-08-04 12:01 | Short Stay Summary ---
JOHNSON MARTÍNEZ 08/04/22 1201: HPI History of Present Illness: Ev Vega is a 56 year old female who was admitted from the ER last night due to NSTEMI and HTN. The patient reported that she had become congested and had sore throat over the weekend which developed into burning jaw pain that radiated to her throat and chest. The patient had an EKG at [facility] and was sent to the ER by ambulance following that. She was started on Aspirin, Lovenox, metoprolol, and crestor and underwent cardiac catheterization. Her heart cath showed a total thrombotic occlusion of distal left circumflex artery and a drug- eluting stent was placed at that site. The patient was quite anxious and jittery this morning which resolved after a nicotine patch was placed. She feels much better today after the nicotine patch was placed, denies chest pain, sob, vision changes dizziness. Source: patient Exam Limitations: no limitations Date seen by provider: Aug 04, 2022 Time Seen by Provider: 08:20 Attending Physician [facility] PCP Admitting Physician: Kwesi Joe MD Attending Physician: Kwesi Joe MD Consult Date of Admission Aug 03, 2022 at 16:40 Home Medications Home Medications Reviewed patient Home Medication Reconciliation performed by pharmacy medication reconciliations household appliances service technician and/or nursing. Patients Allergies have been reviewed. Allergies Coded Allergies: Penicillins (Verified Allergy, Unknown, 08/03/22) [id number]-[id number] Hx Patient Social History Marrital Status: Smoking Status: Current Everyday Smoker (motivated to stop smoking) Alcohol Use?: No Tobacco type used: Cigarettes Have you traveled recently?: No Immunizations Up To Date Influenza Vaccine Up-to-Date: No; Not Current First/Initial COVID19 Vaccinat: 2020 Second COVID19 Vaccination Marlon: 2020 Past Medical History HTN, HLD, GERD, chronic dyspnea, exercise induced asthma, depression, anxiety with panic attacks, mixed connective tissue disease, aortic stenosis, spinal canal stenosis Review of Systems ([facility]) Constitutional: no symptoms reported Respiratory: see HPI Cardiovascular: see HPI; No chest pain; Hx of Intervention, vascular heart diseas Gastrointestinal: No no symptoms reported Genitourinary: No no symptoms reported Reviewed Test Results Reviewed Test Results Lab Laboratory Tests Test 08/03/22 13:36 08/03/22 15:36 08/03/22 17:57 08/04/22 04:58 Range/Units White Blood Count 12.7 H 12.3 H 4.3-11.0 10^3/uL Red Blood Count 5.22 H 4.85 3.80-5.11 10^6/uL Hemoglobin 15.7 14.8 11.5-16.0 g/dL Hematocrit 47 43 35-52 % Mean Corpuscular Volume 89 88 80-99 fL Mean Corpuscular Hemoglobin 30 31 25-34 pg Mean Corpuscular Hemoglobin Concent 34 35 32-36 g/dL Red Cell Distribution Width 12.3 12.5 10.0-14.5 % Platelet Count 355 306 130-400 10^3/uL Mean Platelet Volume 9.8 9.8 9.0-12.2 fL Immature Granulocyte % (Auto) 1 1 % Neutrophils (%) (Auto) 74 74 42-75 % Lymphocytes (%) (Auto) 19 19 12-44 % Monocytes (%) (Auto) 7 6 0-12 % Eosinophils (%) (Auto) 0 0 0-10 % Basophils (%) (Auto) 0 1 0-10 % Neutrophils # (Auto) 9.4 H 9.1 H 1.8-7.8 10^3/uL Lymphocytes # (Auto) 2.4 2.3 1.0-4.0 10^3/uL Monocytes # (Auto) 0.9 0.7 0.0-1.0 10^3/uL Eosinophils # (Auto) 0.0 0.0 0.0-0.3 10^3/uL Basophils # (Auto) 0.1 0.1 0.0-0.1 10^3/uL Immature Granulocyte # (Auto) 0.1 0.1 0.0-0.1 10^3/uL Prothrombin Time 13.2 12.2-14.7 SEC INR Comment 1.0 0.8-1.4 Activated Partial Thromboplast Time 26 24-35 SEC D-Dimer < 0.27 0.00-0.49 UG/ML Sodium Level 135 133 L 135-145 MMOL/L Potassium Level 4.0 3.9 3.6-5.0 MMOL/L Chloride Level 100 104 98-107 MMOL/L Carbon Dioxide Level 25 20 L 21-32 MMOL/L Anion Gap 10 9 5-14 MMOL/L Blood Urea Nitrogen 7 6 L 7-18 MG/DL Creatinine 0.69 0.74 0.60-1.30 MG/DL Estimat Glomerular Filtration Rate 102 95 BUN/Creatinine Ratio 10 8 Glucose Level 135 H 204 H 70-105 MG/DL Calcium Level 9.5 9.0 8.5-10.1 MG/DL Corrected Calcium 9.5 8.5-10.1 MG/DL Magnesium Level 1.7 1.6-2.4 MG/DL Total Bilirubin 0.4 0.1-1.0 MG/DL Aspartate Amino Transf (AST/SGOT) 111 H 5-34 U/L Alanine Aminotransferase (ALT/SGPT) 47 0-55 U/L Alkaline Phosphatase 84 40-136 U/L Total Creatine Kinase 1404 H 29-168 U/L Creatine Kinase MB 144.1 *H <6.6 NG/ML Myoglobin 249.8 H 10.0-92.0 NG/ML Troponin I 13.202 *H 17.757 *H 23.143 *H <0.028 NG/ML B-Type Natriuretic Peptide 69.9 <100.0 PG/ML Total Protein 7.3 6.4-8.2 GM/DL Albumin 4.0 3.2-4.5 GM/DL Lipase 22 8-78 U/L Triglycerides Level 128 <150 MG/DL Cholesterol Level 206 H < 200 MG/DL LDL Cholesterol Direct 151 H 1-129 MG/DL VLDL Cholesterol 26 5-40 MG/DL HDL Cholesterol 43 40-60 MG/DL Thyroid Stimulating Hormone (TSH) 1.96 0.35-4.94 UIU/ML Influenza Type A (RT-PCR) Not Detected Not Detecte Influenza Type B (RT-PCR) Not Detected Not Detecte SARS-CoV-2 RNA (RT-PCR) Not Detected Not Detecte Radiology Chest Xray: mild central vascular prominence without focal consolidation or pneumothorax or pleural fluid. ECHO: LVEF 55-60%, grade 1 diastolic dysfunction, right atrium dilation, pulmonary artery pressure 38 mm Hg. Cardiac cath: systemic hypertension mildly elevated LV end diastolic pressure; total thrombotic occlusion of distal left circumflex artery, drug eluting stent placed, 0% residual stenosis at that site; mild residual disease in LAD and right coronary arteries. Physical Exam-(CHC) Physical Exam Vital Signs VS - Last 72 Hours, by Label [id number]/03/[id number] 08/03/22 08/03/22 13:29 16:45 17:00 17:08 Temp 36.6 Pulse 76 67 71 68 Resp 21 21 B/P (MAP) 177/101 (126) 153/101 145/100 (115) Pulse Ox 96 95 92 O2 Delivery Room Air Room Air Room Air 08/03/22 08/03/22 08/03/22 08/03/22 17:15 17:16 17:30 17:45 Pulse 64 69 73 B/P (MAP) 132/118 (123) 150/90 (110) 127/75 (92) Pulse Ox 92 92 93 O2 Delivery Room Air Room Air Room Air Room Air 08/03/22 08/03/22 08/03/22 08/03/22 19:54 20:00 20:08 20:15 Pulse 69 76 73 B/P (MAP) 90/56 (67) 129/68 (88) 145/81 (102) Pulse Ox 92 92 O2 Delivery Room Air Room Air 08/03/22 08/03/22 08/03/22 08/03/22 20:23 20:24 20:30 20:40 Temp 36.2 Pulse 69 B/P (MAP) 142/71 (94) Pulse Ox 93 95 O2 Delivery Nasal Cannula Nasal Cannula O2 Flow Rate 1.00 1.00 08/03/22 08/03/22 08/03/22 08/03/22 20:45 21:00 21:15 21:30 Pulse 72 74 B/P (MAP) 139/77 (97) 140/65 (90) 151/83 (105) 140/69 (92) Pulse Ox 96 96 O2 Delivery Nasal Cannula Nasal Cannula O2 Flow Rate 1.00 1.00 08/03/22 08/03/22 08/04/22 08/04/22 22:00 23:00 00:00 00:00 Pulse 93 80 74 Resp 22 18 18 B/P (MAP) 151/67 (95) 127/85 (99) 144/91 (108) Pulse Ox 96 95 95 O2 Delivery Nasal Cannula Nasal Cannula Nasal Cannula Room Air O2 Flow Rate 1.00 1.00 1.00 08/04/22 08/04/22 08/04/22 08/04/22 00:00 00:31 01:00 02:00 Pulse 74 77 83 Resp 14 17 B/P (MAP) 110/51 (70) 149/93 (111) Pulse Ox 95 94 O2 Delivery Room Air Nasal Cannula Nasal Cannula O2 Flow Rate 1.00 1.00 08/04/22 08/04/22 08/04/22 08/04/22 03:00 03:17 03:21 04:00 Pulse 65 68 Resp 17 10 B/P (MAP) 140/91 (107) 127/84 (98) Pulse Ox 94 95 92 O2 Delivery Nasal Cannula Room Air Room Air Room Air O2 Flow Rate 1.00 08/04/22 08/04/22 08/04/22 08/04/22 05:00 06:00 07:00 07:41 Pulse 80 76 74 78 Resp 20 20 20 B/P (MAP) 156/101 (119) 131/91 (104) 145/84 (104) Pulse Ox 94 93 92 O2 Delivery Room Air Room Air Room Air 08/04/22 08/04/22 08/04/22 08/04/22 07:41 08:00 08:00 09:00 Temp 36.0 Pulse 76 84 Resp 20 17 B/P (MAP) 161/108 (125) 158/101 (120) Pulse Ox 93 96 O2 Delivery Room Air Room Air Room Air 08/04/22 08/04/22 11:00 11:30 Pulse 77 Resp 20 B/P (MAP) 170/122 (138) Pulse Ox 96 O2 Delivery Room Air Nasal Cannula O2 Flow Rate 0.50 Capillary Refill : Less Than 3 Seconds General Appearance: WD/WN, no apparent distress Respiratory: lungs clear, normal breath sounds, no respiratory distress, no accessory muscle use Cardiovascular: regular rate, rhythm, no edema, no gallop, no JVD, no murmur Gastrointestinal: non tender, soft, no organomegaly Neurologic/Psychiatric: alert, normal mood/affect, oriented x 3 Skin: normal color, warm/dry Short Stay Diagnosis Discharge Diagnosis-Short Stay Admission Diagnosis NSTEMI, HTN Final Discharge Diagnosis NSTEMI, CAD, HTN, HLD Conclusion Plan Plan to discharge patient to home today. Follow up with cardiology. Was the Problem List Reviewed?: Yes Problem List (1) Non-ST elevation myocardial infarction (NSTEMI), initial care episode Assessment & Plan: As above, this was due to acute thrombotic occlusion of the distal left circumflex coronary artery that was treated with 1 drug-eluting stent. She has mild residual disease in the left anterior descending and right coronary arteries. Her ejection fraction is normal. She has no recurrent angina. She has not been having any significant ventricular arrhythmias. From a cardiac standpoint, she can be discharged to home. I will send prescriptions for her cardiac medications to her pharmacy. Status: Resolved Resolution Date/Time: 08/03/22 @ 19:55 (2) Primary hypertension Assessment & Plan: I changed her metoprolol succinate over to carvedilol. Status: Chronic (3) Mixed hyperlipidemia Assessment & Plan: Continue intensive dose statin medication in light of the probable non-ST elevation myocardial infarction. Status: Chronic (4) Gastroesophageal reflux disease without esophagitis Assessment & Plan: Continue pantoprazole. I suspect her neck discomfort was due to the myocardial infarction and not her esophageal reflux disease. Status: Chronic (5) Cigarette smoker Assessment & Plan: She needs to quit smoking. She has been counseled in this regard. Status: Chronic (6) Morbid obesity Assessment & Plan: She needs to work on weight loss. She has been counseled in this regard. Status: Chronic (7) Coronary artery disease with unstable angina pectoris Qualifiers: Qualified Codes: I25.110 - Atherosclerotic heart disease of [place] coronary artery with unstable angina pectoris Assessment & Plan: As above. Clinical Quality Measures AMI/AHF: ASA po Prior to arrival: No Assessment/Plan Assessment/Plan Admission Status: Inpatient Order (span 2 midnights) (1) NSTEMI (non-ST elevated myocardial infarction) Status: Resolved Assessment & Plan: Patient had EKG, Chest Xray, ECHO before undergoing cardiac catheterization. A stent was placed during catheterization with good results. Patient placed on Aspirin, Lovenox, Metoprolol, Brilinta, Crestor. Patient is clinically improved. Cardiology discharging her today. Follow up with cardiology outpatient. (2) Cigarette smoker Status: Chronic Assessment & Plan: Has been smoking since age 20. Smoked 0.5-1 ppd during those years. Stopped smoking upon admission. Patient seems motivated to stop smoking. Nicotine patches ordered for her to flower picker OP. (3) Primary hypertension Status: Chronic Assessment & Plan: Patient on Metoprolol before hospitalization. This has been stopped. Coreg started during admission. Will continue this after discharge. (4) Mixed hyperlipidemia Status: Chronic Assessment & Plan: Patient started on Crestor. (5) Anxiety Status: Chronic Assessment & Plan: Patient takes symbalta outpatient. Will continue. (6) Gastroesophageal reflux disease without esophagitis Status: Chronic Assessment & Plan: Patient on protonix outpatient. Will continue. (7) Morbid obesity Status: Chronic Assessment & Plan: Work on weight loss, healthy diet. KWESI JOE MD 08/04/22 1829: Home Medications Allergies Coded Allergies: Penicillins (Verified Allergy, Unknown, 08/03/22) Supervisory-Addendum Brief Verification & Attestation Participated in pt care: history, MDM, physical Personally performed: exam, history, MDM, supervision of care Care discussed with: Medical Student Procedures: n/a I did my own history and exam which confirmed that documented by the medical student. I directed the plan of care as documented by the medical student. Of note, the problem list in this note is from Cardiology and pulled in by the system, unable to remove. JOHNSON MARTÍNEZ Aug 04, 2022 12:01 KWESI JOE MD Aug 04, 2022 18:29
--- NOTE | 2022-08-04 12:04 | Discharge Summary ---
Discharge [facility] Discharge Medications New, Converted or Re-Newed RX: Transmitted to Pharmacy New Medications: Albuterol Sulfate (Ventolin Hfa) 90 Mcg Hfa.aer.ad 2 PUFF INH Q4H PRN for SHORTNESS OF BREATH, #1 EA 0 Refills 1 PUFF = 90 MCG Aspirin (Aspirin EC) 81 Mg Tablet.dr 81 MG PO DAILY, #100 TAB 3 Refills Carvedilol (Carvedilol) 6.25 Mg Tablet 12.5 MG PO BID, #60 TAB 11 Refills Nicotine (Nicoderm Cq) 21 Mg/24 Hour Patch.td24 21 MG TD DAILY, #42 PATCH 0 Refills Rosuvastatin Calcium (Rosuvastatin Calcium) 20 Mg Tablet 20 MG PO HS, #30 TAB 11 Refills Ticagrelor (Brilinta) 90 Mg Tablet 90 MG PO Q12H, #60 TAB 11 Refills Continued Medications: Cholecalciferol (Vitamin D3) (Vitamin D3) 50 Mcg (2000 Unit) Tablet 50 MCG PO BID, TAB Duloxetine HCl (Duloxetine HCl) 30 Mg Capsule.dr 30 MG PO BID, CAP Hydroxychloroquine Sulfate (Hydroxychloroquine Sulfate) 200 Mg Tablet 200 MG PO HS, TAB Metformin HCl (Metformin HCl) 500 Mg Tablet 500 MG PO BID, TAB Pantoprazole Sodium (Pantoprazole Sodium) 40 Mg Tablet.dr 40 MG PO HS, TAB Discontinued Medications: Meloxicam (Meloxicam) 15 Mg Tablet 15 MG PO HS, TAB Metoprolol Succinate (Metoprolol Succinate) 50 Mg Tab.er.24h 50 MG PO DAILY, TAB Patient Instructions Goal/Follow Up Appt: Follow up with Dr. Menchaca as directed. Follow up with primary doctor within a week. Patient Instructions: Do not restart metformin until Monday due to having contrast for cath. Activity & Diet Discharge Diet: KWESI Tellez MD Aug 04, 2022 12:04
[2022-08-05] MEDS ORDERED: NICOTINE PATCH REMOVAL TP SCH (08:59)
== END 2022-08-04 13:00 | disposition home or self-care (01) | DRG 247 ==
LOC: EDUNIT# 13:21 → ER 13:24 → ICU 15:05 → OBSVTOIN 16:40
PROVIDERS: ADMIT Family Medicine; ATTEND Family Medicine
PROC: 027034Z Dilation of Coronary Artery, One Artery with Drug-eluting Intraluminal Device, Percutaneous Approach (ICD-10-PCS; principal; 2022-08-03)
PROC: 4A023N7 Measurement of Cardiac Sampling and Pressure, Left Heart, Percutaneous Approach (ICD-10-PCS; 2022-08-03)
PROC: B2111ZZ Fluoroscopy of Multiple Coronary Arteries using Low Osmolar Contrast (ICD-10-PCS; 2022-08-03)
DX: I21.4 Non-ST elevation (NSTEMI) myocardial infarction (principal); I10 Essential (primary) hypertension; E78.2 Mixed hyperlipidemia; K21.9 Gastro-esophageal reflux disease without esophagitis; F17.210 Nicotine dependence, cigarettes, uncomplicated; E66.01 Morbid (severe) obesity due to excess calories; I25.110 Atherosclerotic heart disease of native coronary artery with unstable angina pectoris; Z88.0 Allergy status to penicillin; Z20.822 Contact with and (suspected) exposure to COVID-19; J45.909 Unspecified asthma, uncomplicated; F41.0 Panic disorder [episodic paroxysmal anxiety]; Z79.84 Long term (current) use of oral hypoglycemic drugs; Z79.899 Other long term (current) drug therapy
CPT/HCPCS: 36415; 71045; 80048; 80053; 80061; 82550; 82553; 83690; 83735; 83874; 83880; 84443; 84484; 85025; 85347; 85379; 85610; 85730; 87636; 90686; 93005; 93041; 93306; 93458; 94640

== ENCOUNTER 2022-09-26 10:06 | Outpatient (RCR) | payer MEDICARE ==
[~2022-09-26 10:06] MED LIST changes: +ALBU8.5H6 INH; +ASPI-1238 PO; +CARV6.252 PO; +CHOL200025 PO; +DULO30CA49 PO; +MELO15TA39 PO; +METF-397 PO; +METO50TA7 PO; +NICO1PAT34 TD; +PANT40TA52 PO; +ROSU20TA32 PO; +TICA90TA PO
== END 2022-09-27 | disposition home or self-care (01) ==
LOC: CR 10:06
PROVIDERS: ATTEND Internal Medicine Cardiovascular Disease
DX: Z29.8 Encounter for other specified prophylactic measures (principal); I25.2 Old myocardial infarction
CPT/HCPCS: 93798

== ENCOUNTER 2022-10-24 10:16 | Outpatient (RCR) | payer MEDICARE | END 2022-10-25 | disposition home or self-care (01) | LOC: CR 10:16 | PROVIDERS: ATTEND Internal Medicine Cardiovascular Disease | DX: Z29.8 Encounter for other specified prophylactic measures (principal); I25.2 Old myocardial infarction | CPT/HCPCS: 93798 ==

== ENCOUNTER 2022-11-14 15:42 | Observation (INO) | payer MEDICARE ==
[~2022-11-14] VITALS: Ht 157.5 cm; Wt 101.2 kg
--- NOTE | 2022-11-14 16:17 | ED Respiratory ---
General Chief Complaint: Respiratory Problems Stated Complaint: SOA Nursing Triage Note: PT AMB TO TRIAGE CO OF SOA, PT STATES HAS BEEN GOING ON FOR A COUPLE OF WEEKS, PT STATES WAS SENT TO ED BY [facility], PT O2 SAT 83%, PT TAKEN TO ROOM AND PUT ON 02 AT 2L SAT UP TO 97%. PT ALSO CO OF L LEG PAIN FOR A COUPLE DAYS. PT HAS STENT ON 08/03/22. PT QUIT SMOKING IN JUL 2022. PT DENIES C/P AT THIS X. Source: patient Exam Limitations: no limitations History of Present Illness Date Seen by Provider: Nov 14, 2022 Time Seen by Provider: 16:01 Initial Comments 57-year-old female presents to the ED from the [facility] clinic with reports of intermittent shortness of air for the last 2 weeks. States that she gets short of breath with walking short distances, but states she is able to walk on the treadmill at cardiac rehab with no issues. She denies chest pain. Reports she did have a vibrating feeling like a muscle spasm in her chest yesterday. Yesterday she had pain on the top of her left foot, described as a cramping, states that pain is gone now. She reports low-grade fevers. Denies chest pain, abdominal pain, nausea, vomiting, diarrhea. Upon arrival, triage nurse states her heart rate was 130, and her O2 was 84% on room air. Currently her vitals are stable, she is on oxygen via nasal cannula. She had an ID this past July, with 2 stents placed. States that she had epigastric pain when she had her ID, no chest pain. Denies epigastric pain at this time. Reports she used to smoke for least 40 years, quit when she had the heart attack. Allergies and Home Medications Allergies Coded Allergies: Penicillins (Verified Allergy, Unknown, 08/03/22) Patient Home Medication List Home Medication List Reviewed: Yes Amlodipine Besylate (Amlodipine Besylate) 5 Mg Tablet, 5 MG PO DAILY Prescribed by: LEATHA SUAREZ on 11/17/22 1244 Aspirin (Aspirin EC) 81 Mg Tablet.dr, 81 MG PO DAILY, (Reported) Entered as Reported by: CHARLIE COLE on 11/15/22 1055 Last Action: Continued Blood-Glucose Meter (Blood Glucose Monitoring) 1 Each Each, EACH [facility], (DME) Prescribed by: LEATHA SUAREZ on 11/17/22 1244 Carvedilol (Carvedilol) 12.5 Mg Tablet, 12.5 MG PO BID, (Reported) Entered as Reported by: CHRALIE COLE on 11/15/22 105 Last Action: Continued Cholecalciferol (Vitamin D3) (Vitamin D3) 50 Mcg (2000 Unit) Tablet, 50 MCG PO BID, (Reported) Entered as Reported by: KWESI LOCK on 08/04/22909 Last Action: Converted Clopidogrel Bisulfate (Clopidogrel) 75 Mg Tablet, 75 MG PO DAILY, (Reported) Entered as Reported by: ZENIA OLSEN on 11/15/22 0738 Last Action: Held Duloxetine HCl (Duloxetine HCl) 30 Mg Capsule.dr, 30 MG PO BID, (Reported) Entered as Reported by: KWESI LOCK on 08/04/22909 Last Action: Continued Hydroxychloroquine Sulfate (Hydroxychloroquine Sulfate) 200 Mg Tablet, 200 MG PO HS, (Reported) Entered as Reported by: CHARLIE COLE on 08/04/22 105 Last Action: Continued Insulin Aspart (Novolog Flexpen) 100 Unit/Ml (3 Ml) Solution, 10 UNITS SQ AC Prescribed by: LEATHA SUAREZ on 11/17/22 124 Insulin Detemir (Levemir Flexpen) 100 Unit/Ml (3 Ml) Insuln.pen, 20 UNIT SQ BID Prescribed by: LEATHA SUAREZ on 11/17/22 124 Ipratropium/Albuterol Sulfate (Iprat-Albut 0.5-3(2.5) mg/3 ml) 0.5 Mg-3 Mg (2.5 Mg Base)/3 Ml Ampul.neb, 3 ML INH RTQ6HR Prescribed by: LEATHA SUAREZ on 11/17/22 1244 Lancets (Advocate Lancets) 26 Gauge Each, EACH [facility], (DME) Prescribed by: LEATHA SUAREZ on 11/17/22 124 Lancets/Blood Glucose Strips (Lancet 30G-Glucose Test Strip) 30 Gauge Combo..pkg, EACH [facility], (DME) Prescribed by: LEATHA SUAREZ on 11/17/22 124 Loratadine (Loratadine) 10 Mg Tablet, 10 MG PO DAILY Prescribed by: LEATHA SUAREZ on 11/17/22 1244 Meloxicam (Meloxicam) 15 Mg Tablet, 15 MG PO HS, (Reported) Entered as Reported by: CHARLIE COLE on 11/15/221056 Last Action: Converted Metformin HCl (Metformin HCl) 500 Mg Tablet, 500 MG PO BID, (Reported) Entered as Reported by: CHARLIE COLE on 08/04/221050 Last Action: Held Montelukast Sodium (Montelukast Sodium) 10 Mg Tablet, 10 MG PO HS Prescribed by: LEATHA SUAREZ on 11/17/221243 Nystatin (Nystatin) 100,000 Unit/Gram Cream..g., 1 APPLIC TOP BID, (Reported) Entered as Reported by: CHARLIE COLE on 11/15/221054 Last Action: Continued Pantoprazole Sodium (Pantoprazole Sodium) 40 Mg Tablet.dr, 40 MG PO HS, (Reported) Entered as Reported by: CHARLIE COLE on 08/04/221050 Last Action: Continued Pen Needle, Diabetic (Advocate Pen Needle) 33 Gauge X 5/32" Dis.needle, EACH [facility], (DME) Prescribed by: LEATHA SUAREZ on 11/17/221243 Prednisone (Prednisone) 10 Mg Tab.ds.pk, 10 MG PO DAILY Prescribed by: LEATHA SUAREZ on 11/17/221243 Propylene Glycol/Peg 400 (Systane 0.3-0.4% Eye Drops) 0.3 %-0.4 % Drops, 1 DROP OU BID, (Reported) Entered as Reported by: CHARLIE COLE on 11/15/221054 Last Action: Converted Rosuvastatin Calcium (Rosuvastatin Calcium) 20 Mg Tablet, 20 MG PO HS, (Reported) Entered as Reported by: CHARLIE COLE on 11/15/221054 Last Action: Continued [Tonic Wtr W/Quinine] , 2-4 OZ PO HS, (Reported) Entered as Reported by: CHARLIE COLE on 11/15/221054 Last Action: Held Discontinued Medications Albuterol Sulfate (Ventolin Hfa) 90 Mcg Hfa.aer.ad, 2 PUFF INH Q4H PRN for SHORTNESS OF BREATH Discontinued Reason: No Longer Taking Prescribed by: KWESI LOCK on 12/8/22 1201 Last Action: Discontinued Aspirin (Aspirin EC) 81 Mg Tablet.dr, 81 MG PO DAILY Discontinued Reason: Duplicate Order Prescribed by: DAHLIA CORTES JR, MD on 08/04/221016 Last Action: Discontinued Carvedilol (Carvedilol) 6.25 Mg Tablet, 12.5 MG PO BID Discontinued Reason: Duplicate Order Prescribed by: DAHLIA CORTES JR, MD on 08/04/221016 Last Action: Discontinued Nicotine (Nicoderm Cq) 21 Mg/24 Hour Patch.td24, 21 MG TD DAILY Discontinued Reason: No Longer Taking Prescribed by: KWESI LOCK on 08/04/221200 Last Action: Discontinued Rosuvastatin Calcium (Rosuvastatin Calcium) 20 Mg Tablet, 20 MG PO HS Discontinued Reason: Duplicate Order Prescribed by: DAHLIA CORTES JR, MD on 08/04/221016 Last Action: Discontinued Ticagrelor (Brilinta) 90 Mg Tablet, 90 MG PO Q12H Discontinued Reason: No Longer Taking Prescribed by: DAHLIA CORTES JR, MD on 08/04/221016 Last Action: Discontinued Review of Systems Review of Systems Constitutional: see HPI Past Esjzlne-Olmekj-Zpydfm Hx Patient Social History Tobacco Use?: No Smoking Status: Former Smoker Substance use?: No Alcohol Use?: No Immunizations Up To Date Influenza Vaccine Up-to-Date: No; Not Current First/Initial COVID19 Vaccinat: 2020 Second COVID19 Vaccination Marlon: 2020 Third COVID19 Vaccination Date: 2020 Past Medical History Surgery/Hospitalization HX: GERD, HTN, AORTIC STENOSIS, SPINAL CANAL STENOSIS, ARTHRITIS, HEART STENT 08/03/22 Asthma Heart Attack Gastroesophageal Reflux Depression Physical Exam Vital Signs - First Documented 11/14/22 11/14/22 15:43 20:38 Temp 36.5 Pulse 132 Resp 18 B/P (MAP) 149/98 (115) Pulse Ox 97 O2 Delivery Nasal Cannula Capillary Refill : Less Than 3 Seconds Height: 5'2" Weight: 185lbs. oz. 83.788475pr; 40.00 BMI Method:Stated General Appearance: WD/WN, no apparent distress Neck: supple, normal inspection Respiratory: lungs clear, no respiratory distress, no accessory muscle use, decreased breath sounds Cardiovascular: regular rate, rhythm, no edema, no gallop, no JVD, no murmur Extremities: normal range of motion, non-tender, normal inspection, no pedal edema Neurologic/Psychiatric: alert, normal mood/affect Skin: normal color, warm/dry Focused Exam Lactate Level 11/14/22 16:00: Lactic Acid Level 1.46 Lactic Acid Level Laboratory Tests Test 11/14/22 16:00 Lactic Acid Level 1.46 MMOL/L (0.50-2.00) Progress/Results/Core Measures Suspected Sepsis SIRS Temperature: Pulse: 132 Respiratory Rate: 18 Blood Pressure 149 /98 Mean: 115 11/14/22 16:00: Lactic Acid Level 1.46 Laboratory Tests 11/14/22 16:00: INR Comment 1.0 Results/Orders Lab Results Laboratory Tests Test 11/14/22 16:00 11/14/22 16:49 11/14/22 19:35 Range/Units White Blood Count 9.1 4.3-11.0 10^3/uL Red Blood Count 4.94 3.80-5.11 10^6/uL Hemoglobin 14.9 11.5-16.0 g/dL Hematocrit 44 35-52 % Mean Corpuscular Volume 89 80-99 fL Mean Corpuscular Hemoglobin 30 25-34 pg Mean Corpuscular Hemoglobin Concent 34 32-36 g/dL Red Cell Distribution Width 12.5 10.0-14.5 % Platelet Count 314 130-400 10^3/uL Mean Platelet Volume 9.3 9.0-12.2 fL Immature Granulocyte % (Auto) 0 % Neutrophils (%) (Auto) 66 42-75 % Lymphocytes (%) (Auto) 21 12-44 % Monocytes (%) (Auto) 9 0-12 % Eosinophils (%) (Auto) 3 0-10 % Basophils (%) (Auto) 1 0-10 % Neutrophils # (Auto) 5.9 1.8-7.8 10^3/uL Lymphocytes # (Auto) 1.9 1.0-4.0 10^3/uL Monocytes # (Auto) 0.8 0.0-1.0 10^3/uL Eosinophils # (Auto) 0.3 0.0-0.3 10^3/uL Basophils # (Auto) 0.1 0.0-0.1 10^3/uL Immature Granulocyte # (Auto) 0.0 0.0-0.1 10^3/uL Prothrombin Time 13.1 12.2-14.7 SEC INR Comment 1.0 0.8-1.4 Activated Partial Thromboplast Time 28 24-35 SEC D-Dimer <= 0.27 0.00-0.49 UG/ML Sodium Level 134 L 135-145 MMOL/L Potassium Level 4.5 3.6-5.0 MMOL/L Chloride Level 101 98-107 MMOL/L Carbon Dioxide Level 24 21-32 MMOL/L Anion Gap 9 5-14 MMOL/L Blood Urea Nitrogen 9 7-18 MG/DL Creatinine 0.80 0.60-1.30 MG/DL Estimat Glomerular Filtration Rate 86 BUN/Creatinine Ratio 11 Glucose Level 143 H 70-105 MG/DL Lactic Acid Level 1.46 0.50-2.00 MMOL/L Calcium Level 9.3 8.5-10.1 MG/DL Corrected Calcium 9.4 8.5-10.1 MG/DL Magnesium Level 1.7 1.6-2.4 MG/DL Total Bilirubin 0.3 0.1-1.0 MG/DL Aspartate Amino Transf (AST/SGOT) 26 5-34 U/L Alanine Aminotransferase (ALT/SGPT) 35 0-55 U/L Alkaline Phosphatase 98 40-136 U/L Troponin I < 0.028 <0.028 NG/ML B-Type Natriuretic Peptide 18.3 <100.0 PG/ML Total Protein 7.5 6.4-8.2 GM/DL Albumin 3.9 3.2-4.5 GM/DL Influenza Type A (RT-PCR) Not Detected Not Detecte Influenza Type B (RT-PCR) Not Detected Not Detecte SARS-CoV-2 RNA (RT-PCR) Not Detected Not Detecte Blood Gas Puncture Site RIGHT RADIAL Blood Gas Patient Temperature 36.7 Arterial Blood pH 7.40 7.37-7.43 Arterial Blood Partial Pressure CO2 42 35-45 MMHG Arterial Blood Partial Pressure O2 71 L 79-93 MMHG Arterial Blood HCO3 26 23-27 MMOL/L Arterial Blood Total CO2 27.4 21.0-31.0 MMOL/L Arterial Blood Oxygen Saturation 93 L 94-100 % Arterial Blood Base Excess 1.7 -2.5-2.5 MMOL/L Chau Test YES-POS Blood Gas Ventilator Setting NO Blood Gas Inspired Oxygen 2L Micro Results Microbiology 11/14/22 Blood Culture - Preliminary, Resulted No growth 11/14/22 Blood Culture - Preliminary, Resulted No growth My Orders Orders - JIA BARAHONA [employer]GER Cbc With Automated Diff (11/14/22 16:07) Magnesium (11/14/22 16:07) Chest 1 View, Ap/Pa Only (11/14/22 16:07) Ekg Tracing (11/14/22 16:07) Comprehensive Metabolic Panel (11/14/22 16:07) Protime With Inr (11/14/22 16:07) Partial Thromboplastin Time (11/14/22 16:07) O2 (11/14/22 16:07) Monitor-Rhythm Ecg Trace Only (11/14/22 16:07) Ed Iv/Invasive Line Start (11/14/22 16:07) Bnp [place]bour (11/14/22 16:07) Fibrin Degradation Products (11/14/22 16:07) Troponin I [place]bour (11/14/22 16:07) Blood Culture (11/14/22 16:10) Lactic Acid Analyzer (11/14/22 16:10) Covid 19 Inhouse Test (11/14/22 16:11) Influenza A And B By Pcr (11/14/22 16:11) Albuterol/Ipra Inhalation Soln (Duoneb I (11/14/22 17:45) Svn Small Volume Nebulizer (11/14/22 17:35) Ct Chest W (11/14/22 18:19) Iohexol Injection (Omnipaque 350 Mg/Ml 1 (11/14/22 18:30) Received Contrast (Hold Metformin- Contr (11/14/22 18:30) Ns (Ivpb) (Sodium Chloride 0.9% Ivpb Bag (11/14/22 18:30) Methylprednisolone Sod Succ (Solu-Medrol (11/14/22 19:30) Arterial Blood Gas (11/14/22 19:34) Ed Admission (Communication) (11/14/22 20:00) Medications Given in ED Vital Signs/I&O 11/14/22 11/14/22 11/14/22 11/14/22 15:43 16:00 16:00 18:36 Pulse 132 Resp 18 B/P (MAP) 149/98 (115) Pulse Ox 97 97 96 O2 Delivery Nasal Cannula Nasal Cannula Room Air Nasal Cannula O2 Flow Rate 2.00 2.00 11/14/22 20:38 Temp 36.5 Pulse 70 Resp 16 B/P (MAP) 148/76 Pulse Ox 93 O2 Delivery Nasal Cannula O2 Flow Rate 2.00 Capillary Refill : Less Than 3 Seconds Blood Pressure Mean: 115 Progress Note : Progress Note Patient seen and evaluated, resting comfortably bed, no acute distress. Based on exam and symptoms, concern for pneumonia, CHF, COPD, ID. Work-up initiated including CBC, CMP, troponin, magnesium, coags, blood cultures x2, lactic acid, chest x-ray, COVID and flu swab. Labs and x-ray reviewed. CBC grossly negative. CMP shows slightly decreased sodium 134. Glucose 143. Troponin negative. BNP normal 18.3. Lactic acid normal 1.46. Coags negative. D-dimer negative. COVID and flu negative. Chest x-ray shows volume loss in the right lung with air trapping in the upper lobe of the right lung. There is no consolidation or other adverse change. CT of the chest ordered for further evaluation. DuoNeb ordered. Patient reports feeling a little better after breathing treatment. Solu-Medrol was also ordered. Patient's oxygen saturation continues to fall to the mid 80s when on room air. She is fine when she is on 2 L of oxygen. ABG ordered. ABG shows normal pH 7.4, normal PCO2 42, decreased PO2 71, normal HCO3 26, oxygen saturation 93% on [address] of the chest shows extensive centrilobular emphysema. Mildly prominent lympho id tissue in the pulmonary brittani may be reactive. Dr. Suarez, hospitalist, called for admission due to hypoxia and likely COPD e xacerbation. ECG Initial ECG Impression Date: Nov 14, 2022 Initial ECG Impression Time: 16:40 Initial ECG Rate: 73 Initial ECG Rhythm: Normal Sinus Initial ECG Intervals: Normal Initial ECG Impression: Nonspecific Changes Initial ECG Comparisson: Unchanged Diagnostic Imaging Diagonstic Imaging: Xray Plain Films/CT/US/NM/MRI: chest Comments [facility] [place] [place], [place] NAME: AMANDA ASTUDILLO [facility] REC#: [id number] PT STATUS: REG ER : 1965 PHYSICIAN: JIA BARAHONA APRN ADMIT DATE: 11/14/22/ER Signed Date of Exam:11/14/22 CHEST 1 VIEW, AP/PA ONLY INDICATION: Chest pain. TECHNIQUE: AP view of the chest is obtained with comparison made to study of 08/03/2022. FINDINGS: Heart size and pulmonary vascularity remain within normal limits. There is mild air trapping in the right upper lobe with elevation of the right hemidiaphragm. Surgical findings are seen in the left shoulder. No acute abnormality or adverse change is seen. IMPRESSION: Continued volume loss in the right lung with trapping in the upper lobe of the right lung. There is no consolidation or other adverse change. Dictated by: Dictated on workstation # [id number] Dict: 11/14/22 1629 Trans: 11/14/22 1643 [id number] Interpreted by: ALONZO RONDON MD Electronically signed by: ALONZO RONDON MD 11/14/22 1643 Diagonstic Imaging: CT Plain Films/CT/US/NM/MRI: chest Comments [facility], [place] NAME: AMANDA ASTUDILLO [facility] REC#: [id number] PT STATUS: REG ER : 1965 PHYSICIAN: JIA BARAHONA APRN ADMIT DATE: 11/14/22/ER Draft Date of Exam:11/14/22 CT CHEST W PROCEDURE: CT chest with contrast only. TECHNIQUE: Multiple contiguous axial images were obtained through the chest after administration of intravenous contrast. Auto Exposure Controls were utilized during the CT exam to meet ALARA standards for radiation dose reduction. INDICATION: Dyspnea There is extensive centrilobular emphysema with an upper lobe predominance. No consolidation or discrete mass is identified. There is no significant pleural or pericardial fluid. There is mildly prominent lymphoid tissue in the brittani without definite pathologically enlarged lymph nodes. Note is made of hepatic steatosis without other abnormality seen below the diaphragm. IMPRESSION: Extensive centrilobular emphysema. No definite acute abnormality seen in the chest. Mildly prominent lymphoid tissue in the pulmonary brittani may be reactive. Degenerative findings and surgical findings are noted in the left shoulder. Dictated on workstation # [id number] Dict: 11/14/221858 Trans: 11/14/221908 [id number] Interpreted by: ALONZO RONDON MD Electronically signed by: Departure Communication (Admissions) Time/Spoke to Admitting Phy: 19:57 Dr. Suarez, hospitalist, agrees to admit patient for observation MedSur. Dr. Suarez will place acute orders. Impression Primary Impression: COPD exacerbation Additional Impression: Hypoxia Disposition: ADMITTED INPATIENT Condition: Stable Admissions Decision to Admit Reason: Admit from ER (General) Decision to Admit/Date: Nov 14, 2022 Time/Decision to Admit Time: 19:57 Departure-Patient Inst. Referrals: [facility] [place] ([place]P/Family) Primary Care Physician Scripts Lancets/Blood Glucose Strips (Lancet 30G-Glucose Test Strip) 30 Gauge Combo..pkg EACH AC for Hyperglycemia, #100 Prov: LEATHA SUAREZ DO 11/17/22 Lancets (Advocate Lancets) 26 Gauge Each EACH ACHS for Hyperglycemia, #100 Prov: LEATHA SUAREZ DO 11/17/22 Blood-Glucose Meter (Blood Glucose Monitoring) 1 Each Each EACH ACHS for Hyperglycemia, #1 Prov: LEATHA SUAREZ DO 11/17/22 Pen Needle, Diabetic (Advocate Pen Needle) 33 Gauge X 5/32" Dis.needle EACH ACHS for Hyperglycemia, #100 Prov: LEATHA SUAREZ DO 11/17/22 Insulin Aspart (Novolog Flexpen) 100 Unit/Ml (3 Ml) Solution 10 UNITS SQ AC, #1 EA Prov: LEATHA SUAREZ DO 11/17/22 Insulin Detemir (Levemir Flexpen) 100 Unit/Ml (3 Ml) Insuln.pen 20 UNIT SQ BID, #1 EA Prov: LEATHA SUAREZ DO 11/17/22 Prednisone (Prednisone) 10 Mg Tab.ds.pk 10 MG PO DAILY, #21 EA Take 6 tabs(60mg)daily,decrease by 1 tab(10MG)daily. Prov: LEATHA SUAREZ DO 11/17/22 Montelukast Sodium (Montelukast Sodium) 10 Mg Tablet 10 MG PO HS, #30 TAB Prov: LEATHA SUAREZ DO 11/17/22 Amlodipine Besylate (Amlodipine Besylate) 5 Mg Tablet 5 MG PO DAILY, #30 TAB Prov: LEATHA SUAREZ DO 11/17/22 Ipratropium/Albuterol Sulfate (Iprat-Albut 0.5-3(2.5) mg/3 ml) 0.5 Mg-3 Mg (2.5 Mg Base)/3 Ml Ampul.neb 3 ML INH RTQ6HR, #30 EACH Prov: LEATHA SUAREZ DO 11/17/22 Loratadine (Loratadine) 10 Mg Tablet 10 MG PO DAILY, #30 TAB Prov: LEATHA SUAREZ DO 11/17/22 JIA BARAHONA APRN Nov 14, 2022 16:17
[2022-11-14 16:19] LABS: BASOPHILS # (AUTO) 0.1 10^3/uL (0.0-0.1); BASOPHILS % (AUTO) 1 % (0-10); EOSINOPHILS # (AUTO) 0.3 10^3/uL (0.0-0.3); EOSINOPHILS % (AUTO) 3 % (0-10); HEMATOCRIT 44 % (35-52); HEMOGLOBIN 14.9 g/dL (11.5-16.0); LYMPHOCYTES # (AUTO) 1.9 10^3/uL (1.0-4.0); LYMPHOCYTES % (AUTO) 21 % (12-44); MEAN CORPUSCULAR HEMOGLOBIN 30 pg (25-34); MEAN CORPUSCULAR HGB CONC 34 g/dL (32-36); MEAN CORPUSCULAR VOLUME 89 fL (80-99); MEAN PLATELET VOLUME 9.3 fL (9.0-12.2); MONOCYTES # (AUTO) 0.8 10^3/uL (0.0-1.0); MONOCYTES % (AUTO) 9 % (0-12); NEUTROPHILS # (AUTO) 5.9 10^3/uL (1.8-7.8); NEUTROPHILS % (AUTO) 66 % (42-75); PLATELET COUNT 314 10^3/uL (130-400); WHITE BLOOD COUNT 9.1 10^3/uL (4.3-11.0)
[2022-11-14 16:27] LABS: ALBUMIN 3.9 GM/DL (3.2-4.5); POTASSIUM 4.5 MMOL/L (3.6-5.0)
[2022-11-14 16:28] LABS: CALCIUM 9.3 MG/DL (8.5-10.1); PROTHROMBIN TIME PATIENT 13.1 SEC (12.2-14.7)
[2022-11-14 16:30] LABS: TOTAL PROTEIN 7.5 GM/DL (6.4-8.2)
[2022-11-14 16:31] LABS: BILIRUBIN,TOTAL 0.3 MG/DL (0.1-1.0)
[2022-11-14 16:33] LABS: CREATININE SERUM 0.8 MG/DL (0.60-1.30)
--- NOTE | 2022-11-14 16:33 | Diagnostic Imaging Report ---
INDICATION: Chest pain. TECHNIQUE: AP view of the chest is obtained with comparison made to study of 08/03/2022. FINDINGS: Heart size and pulmonary vascularity remain within normal limits. There is mild air trapping in the right upper lobe with elevation of the right hemidiaphragm. Surgical findings are seen in the left shoulder. No acute abnormality or adverse change is seen. IMPRESSION: Continued volume loss in the right lung with trapping in the upper lobe of the right lung. There is no consolidation or other adverse change. Dictated by: Dictated on workstation # [id number]
[2022-11-14 16:36] LABS: MAGNESIUM 1.7 MG/DL (1.6-2.4)
[2022-11-14] MEDS ORDERED: RT-ALBUTEROL/IPRATROPIUM 3 ML (DUONEB) VIAL INH ONE (17:45)
[2022-11-14] MEDS ORDERED: NS 100 ML (IVPB) BAG IV ONE (18:30)
[2022-11-14] MEDS ORDERED: IOHEXOL 350 MG/ML 100 ML (OMNIPAQUE 350) VIAL IV ONE (18:30)
[2022-11-14] MEDS ORDERED: HOLD METFORMIN - RECEIVED CONTRAST 20 ML VIAL IV SCH (18:30)
--- NOTE | 2022-11-14 19:11 | Diagnostic Imaging Report ---
PROCEDURE: CT chest with contrast only. TECHNIQUE: Multiple contiguous axial images were obtained through the chest after administration of intravenous contrast. Auto Exposure Controls were utilized during the CT exam to meet ALARA standards for radiation dose reduction. INDICATION: Dyspnea There is extensive centrilobular emphysema with an upper lobe predominance. No consolidation or discrete mass is identified. There is no significant pleural or pericardial fluid. There is mildly prominent lymphoid tissue in the brittani without definite pathologically enlarged lymph nodes. Note is made of hepatic steatosis without other abnormality seen below the diaphragm. IMPRESSION: Extensive centrilobular emphysema. No definite acute abnormality seen in the chest. Mildly prominent lymphoid tissue in the pulmonary brittani may be reactive. Degenerative findings and surgical findings are noted in the left shoulder. Dictated by: Dictated on workstation # [id number]
[2022-11-14] MEDS ORDERED: methylPREDNISolone 125 MG (Solu-MEDROL) VIAL IVP ONE (19:30)
[2022-11-14 19:45] LABS: ABG BASE EXCESS 1.7 MMOL/L (-2.5-2.5); ABG OXYGEN SATURATION 93 % (94-100); ABG PCO2 42 MMHG (35-45); ABG PO2 71 MMHG (79-93); ABG TCO2 27.4 MMOL/L (21.0-31.0)
[2022-11-14 19:48] LABS: ALLENS TEST YES-POS; INSPIRED O2 2L; PATIENT TEMP 36.7; VENTILATOR NO
[2022-11-14 20:51] VITALS: BP 152/80
[2022-11-14 21:00] VITALS: BP 144/80
[2022-11-14] MEDS ORDERED: cloNIDine 0.1 MG (CATAPRES) TAB PO PRN (21:15)
[2022-11-14] MEDS ORDERED: ANTACID SUSP 30 ML UDC (MYLANTA) PO PRN (21:15)
[2022-11-14] MEDS ORDERED: ONDANSETRON 4 MG/2 ML (SDV) Z0FRAN IV PRN (21:15)
[2022-11-14] MEDS ORDERED: ACETAMINOPHEN 325 MG TABLET PO PRN (21:15)
[2022-11-14] MEDS ORDERED: diphenhydrAMINE 25 MG TAB (BENADRYL) PO PRN (21:15)
[2022-11-14] MEDS ORDERED: MELATONIN 3 MG TABLET PO PRN (21:15)
[2022-11-14] MEDS ORDERED: LACTULOSE SYRUP 10GM/15ML (ENULOSE) 30ML UDC PO PRN (21:15)
[2022-11-14] MEDS ORDERED: HYDROmorphone 2 MG/ML VIAL (DILAUDID) IV PRN (21:15)
[2022-11-14] MEDS ORDERED: diphenhydrAMINE 50 MG/ML INJ (BENADRYL) IVP PRN (21:15)
[2022-11-14] MEDS ORDERED: polyethylene glycoL POWDER 17 GM (MIRALAX) PACK PO PRN (21:15)
[2022-11-14] MEDS ORDERED: CALCIUM CARBONATE 500 MG (TUMS) TAB.CHEW PO PRN (21:15)
[2022-11-14] MEDS ORDERED: ONDANSETRON 4 MG (ZOFRAN) ORAL DISSOLVE TAB PO PRN (21:15)
[2022-11-14] MEDS ORDERED: MILK OF MAGNESIA 400 MG/5 ML 30 ML UDC PO PRN (21:15)
[2022-11-14] MEDS ORDERED: BISACODYL 10 MG SUPP (DULCOLAX) PR PRN (21:15)
[2022-11-14] MEDS ORDERED: LORazepam 0.5 MG (ATIVAN) TABLET PO PRN (21:15)
[2022-11-14 22:00] VITALS: BP 153/93
[2022-11-14 22:04] VITALS: BP 149/98
[2022-11-14] MEDS ORDERED: RT-ALBUTEROL/IPRATROPIUM 3 ML (DUONEB) VIAL INH PRN (22:15)
[2022-11-15] VITALS (10 sets, daily range): BP systolic 133–156; BP diastolic 70–96
[2022-11-15] MEDS: methylPREDNISolone 40 MG/ML (Solu-MEDROL) VIAL IV SCH ×4 (02:34→21:38)
[2022-11-15] MEDS: RT-ALBUTEROL/IPRATROPIUM 3 ML (DUONEB) VIAL INH SCH ×6 (03:07→21:38)
[2022-11-15 05:26] LABS: BASOPHILS % (AUTO) 0 % (0-10); EOSINOPHILS % (AUTO) 0 % (0-10); HEMATOCRIT 44 % (35-52); HEMOGLOBIN 14.9 g/dL (11.5-16.0); LYMPHOCYTES % (AUTO) 10 % (12-44); MEAN CORPUSCULAR HEMOGLOBIN 30 pg (25-34); MEAN CORPUSCULAR HGB CONC 34 g/dL (32-36); MEAN CORPUSCULAR VOLUME 88 fL (80-99); MEAN PLATELET VOLUME 9.3 fL (9.0-12.2); MONOCYTES # (AUTO) 0.1 10^3/uL (0.0-1.0); MONOCYTES % (AUTO) 1 % (0-12); NEUTROPHILS # (AUTO) 9.2 10^3/uL (1.8-7.8); NEUTROPHILS % (AUTO) 89 % (42-75); PLATELET COUNT 318 10^3/uL (130-400); WHITE BLOOD COUNT 10.4 10^3/uL (4.3-11.0)
[2022-11-15 05:52] LABS: ALBUMIN 3.8 GM/DL (3.2-4.5); BILIRUBIN,TOTAL 0.3 MG/DL (0.1-1.0); CALCIUM 9.6 MG/DL (8.5-10.1); CREATININE SERUM 0.86 MG/DL (0.60-1.30); POTASSIUM 4.2 MMOL/L (3.6-5.0); TOTAL PROTEIN 7.5 GM/DL (6.4-8.2)
[2022-11-15 06:27] LABS: NEUTROPHILS % (MANUAL) 90 %
[2022-11-15 06:28] LABS: LYMPHOCYTES % (MANUAL) 9 %; MONOCYTES % (MANUAL) 1 %; RBC MORPH NORMAL
[2022-11-15] MEDS ORDERED: CLOP75TA28 PO (07:38)
--- NOTE | 2022-11-15 08:08 | Physical Therapy Progress Note ---
Therapy Progress Note Patient up independently without difficulty. No skilled PT indicated. JOSELYN RUELAS PT Nov 15, 2022 08:08
[2022-11-15] MEDS: CLOPIDOGREL 75 MG (PLAVIX) TABLET PO SCH (08:53)
[2022-11-15] MEDS: ENOXAPARIN 40 MG/0.4 ML (LOVENOX) SYR SC SCH ×2 (08:53→21:38)
[2022-11-15] MEDS: ASPIRIN E.C. 81 MG (ECOTRIN) TAB PO SCH (08:53)
[2022-11-15] MEDS: LORATADINE (CLARITIN) 10 MG TAB PO SCH (08:54)
[2022-11-15] MEDS: DOCUSATE SODIUM 100 MG (COLACE) CAP PO SCH ×2 (08:54→22:35)
[2022-11-15] MEDS: SENNOSIDES 8.6 MG (SENOKOT) TAB PO SCH ×2 (08:54→22:34)
[2022-11-15] MEDS ORDERED: [UNRECOGNIZED DRUG - OTHER] PO (10:55)
[2022-11-15] MEDS ORDERED: CARV12.53 PO (10:55)
[2022-11-15] MEDS ORDERED: ROSU20TA32 PO (10:55)
[2022-11-15] MEDS ORDERED: NYST15CR35 TOP (10:55)
[2022-11-15] MEDS ORDERED: ASPI-1238 PO (10:55)
[2022-11-15] MEDS ORDERED: QUININE PO (10:55)
[2022-11-15] MEDS ORDERED: PROP15DR OU (10:55)
[2022-11-15] MEDS ORDERED: MELO15TA39 PO (10:57)
--- NOTE | 2022-11-15 11:25 | History & Physical-Hospitalist ---
JONES ABARCA 11/15/22 1124: History of Present Illness HPI/Chief Complaint This is a 57 y/o female who presented to the ED yesterday with SOB that had been gradually increasing over the past two weeks. Her history is significant for MS with two stents placed in July of 2022, a working diagnosis of possible mixed connective tissue disease for which she takes plaquenil, asthma, and probable COPD. She also takes metformin for diabetes with her last a1c being 7.0%. She says since her MS in July she has completely stopped smoking after 40 years and has been going to cardiac rehab. She notes that at rehab she doesn't usually feel short of breath but feels SOB more often when exerting herself when doing errands/chores, she does endorse feeling some anxiety about being out and this occurring which is not present at cardiac rehab. She notes that since her heart attack she has some SOB while laying down and sleeps with pillows to help prop her up. She recently saw Dr. Tavares for these symptoms who was concerned that her "lungs were quiet" and he subsequently ordered PFTs which she has not completed yet. She has used an albuterol inhaler for exercise- induced asthma but this did not help before she came to the ED. She notes that she has had some low-grade fevers recently with chills but this is not unusual with her rheumatic diseases. She is currently scheduled to establish with a new tailor garment fitter in [place], she says. She denies i ncreased/change in sputum, denies increased cough, denies CP, or pain anywhere else, denies swelling in her extremities, and endorses some bloody/scabbed nasal passages when she blows her nose and diaphoresis/hot flashing (especially when SOB) and "fluttering/quivering deep in her left chest" associated with episodes of SOB. This morning she is sitting up in her recliner eating breakfast. She says her SOB has improved but is still requiring 3L N.C. She has no other complaints this AM. Last BM was yesterday morning, peeing without issue. Source: patient Date Seen 11/15/22 Time Seen by a Provider: 08:00 Attending Physician [facility] PCP Admitting Physician: Smiley Suarez DO Attending Physician: Suarez,Smiley DO Referring Physician Date of Admission Nov 14, 2022 at 20:40 Home Medications & Allergies Home Medications Reviewed patient Home Medication Reconciliation performed by pharmacy medication reconciliations shop service technician and/or nursing. Patients Allergies have been reviewed. Allergies Allergies Coded Allergies Penicillins (Verified Allergy, Unknown, 08/03/22) Past Ozgtffn-Umzqom-Ttecmx Hx Patient Social History Tobacco Use?: No Smoking Status: Former Smoker Use of E-Cig and/or Vaping dev: No Substance use?: No Alcohol Use?: No Pt feels they are or have been: No Immunizations Up To Date First/Initial COVID19 Vaccinat: 2020 Second COVID19 Vaccination Marlon: 2020 Tetanus Booster (TDap): More Than 5 Years Hepatitis A: No Hepatitis B: No Current Status status: No status: No Advance Directives: No Communicates: Verbally Primary Language: [place] Preferred Spoken Language: [place] Is interpretation needed?: No Sensory deficits: Vision impairment Implanted or Applied Medical D: Stents Past Medical History Asthma Heart Attack Gastroesophageal Reflux Depression HTN, HLD, GERD, chronic dyspnea, exercise induced asthma, depression, anxiety with panic attacks, mixed connective tissue disease, aortic stenosis, spinal canal stenosis Review of Systems Constitutional: see HPI, chills, diaphoresis, weight gain; No weight loss EENTM: no symptoms reported Respiratory: see HPI Cardiovascular: see HPI Gastrointestinal: no symptoms reported Genitourinary: no symptoms reported Musculoskeletal: see HPI, joint pain, joint swelling Skin: change in color Psychiatric/Neurological: See HPI, Anxiety, Depressed Physical Exam Physical Exam Vital Signs Vital Signs - First Documented 11/14/22 11/14/22 11/14/22 15:43 20:38 22:04 Temp 36.5 Pulse 132 Resp 18 B/P (MAP) 149/98 (115) Pulse Ox 97 O2 Delivery Nasal Cannula FiO2 28 Capillary Refill : Less Than 3 Seconds Height, Weight, BMI Height: 5'2" Weight: 185lbs. oz. 83.960110wd; 40.35 BMI Method:Stated General Appearance: No Apparent Distress, Obese HEENT: PERRL/EOMI, Pharynx Normal Neck: Normal Inspection, Non Tender, Supple Respiratory: Chest Non Tender, No Accessory Muscle Use, No Respiratory Distress, Decreased Breath Sounds (Mild expiratory wheezing. Air movement overall decreased.) Cardiovascular: Regular Rate, Rhythm, No Edema, No Gallop, No Murmur Gastrointestinal: Normal Bowel Sounds, Non Tender, Soft Back: Normal Inspection Extremity: Non Tender, No Calf Tenderness, No Pedal Edema Neurologic/Psychiatric: Alert, Oriented x3 Skin: Normal Color, Warm/Dry Results Results/Procedures Labs Laboratory Tests 11/14/22 16:00 11/15/22 04:54 Patient resulted labs reviewed. Imaging: Reviewed Imaging Films, Reviewed Imaging Report Imaging NAME: AMANDA ASTUDILLO [facility] REC#: [id number] PT STATUS: REG ER : 1965 PHYSICIAN: JIA BARAHONA APRN ADMIT DATE: 11/14/22/ER Draft Date of Exam:11/14/22 CT CHEST W PROCEDURE: CT chest with contrast only. TECHNIQUE: Multiple contiguous axial images were obtained through the chest after administration of intravenous contrast. Auto Exposure Controls were utilized during the CT exam to meet ALARA standards for radiation dose reduction. INDICATION: Dyspnea There is extensive centrilobular emphysema with an upper lobe predominance. No consolidation or discrete mass is identified. There is no significant pleural or pericardial fluid. There is mildly prominent lymphoid tissue in the brittani without definite pathologically enlarged lymph nodes. Note is made of hepatic steatosis without other abnormality seen below the diaphragm. IMPRESSION: Extensive centrilobular emphysema. No definite acute abnormality seen in the chest. Mildly prominent lymphoid tissue in the pulmonary brittani may be reactive. Degenerative findings and surgical findings are noted in the left shoulder. Dictated on workstation # [id number] Dict: 11/14/22 1859 Trans: 11/14/22 1909 [id number] Interpreted by: ALONZO RONDON MD Electronically signed by: NAME: AMANDA ASTUDILLO [facility] REC#: [id number] PT STATUS: REG ER : 1965 PHYSICIAN: JIA BARAHONA APRN ADMIT DATE: 11/14/22/ER Signed Date of Exam:11/14/22 CHEST 1 VIEW, AP/PA ONLY INDICATION: Chest pain. TECHNIQUE: AP view of the chest is obtained with comparison made to study of 08/03/2022. FINDINGS: Heart size and pulmonary vascularity remain within normal limits. There is mild air trapping in the right upper lobe with elevation of the right hemidiaphragm. Surgical findings are seen in the left shoulder. No acute abnormality or adverse change is seen. IMPRESSION: Continued volume loss in the right lung with trapping in the upper lobe of the right lung. There is no consolidation or other adverse change. Dictated by: Dictated on workstation # [id number] Dict: 11/14/22 1629 Trans: 11/14/22 1643 [id number] Interpreted by: ALONZO RONDON MD Electronically signed by: ALONZO RONDON MD 11/14/22 1647 Assessment/Plan Assessment and Plan Assessment: This is a 57 y/o female who presented with increasing SOB over the past two weeks Plan SOB AHRF COPD exacerbation vs CHF exacerbation -Troponin, BNP normal -CXR/CT c/w emphysema, significant air trapping -Exam c/w COPD exacerbation -IV solumedrol scheduled -Duonebs ordered - have been improving -Likely needs daily inhaler therapy -Claritin, montelukast ordered -Reduced O2 needs from admit -ABG 7.4/// -Continue to monitor respiratory status -Will get echo to evaluate EF, pulmonary artery pressures given hx of connective tissue disease, recent MS and LAU CAD MS - recent -Continuing plavix and ASA -Will get echo -EKG sinus rhythm w/ minimal ST depression -Consider consulting Cards to evaluate/follow with pt. -Can continue statin from home med list -No CP Diabetes mellitus Hyperglycemia -BGL in 400s s/p steroid admin -On metformin at home -Will do SSI inpatient -Levemir 10u BID GERD -PPI, PRN antacids ordered Mixed Connective Tissue Disease -On hydroxychloroquine and pt reports good control with this -Can continue Dispo: Stable to transfer to med-surg and continue monitoring pending above mentioned studies. SMILEY SUAREZ DO 11/16/22 0518: Assessment/Plan Admission Diagnosis AECOPD Admission Status: Observation Supervisory-Addendum Brief Verification & Attestation Participated in pt care: history, MDM, physical Personally performed: exam, history, MDM, supervision of care Care discussed with: Medical Student Procedures: n/a Results interpretation: Verified all documentation Verification and Attestation of Medical Student E/M Service A medical student performed and documented this service in my presence. I reviewed and verified all information documented by the medical student and made modifications to such information, when appropriate. I personally performed the physical exam and medical decision making. Smiley Suarez, Nov 16, 2022,05:18 JONES ABARCA Nov 15, 2022 11:24 SMILEY SUAREZ DO Nov 16, 2022 05:18
[2022-11-15] MEDS ORDERED: inSUlin (REGULAR) HUMAN 1 UNIT/0.01 ML (CHARGE PER UNIT) SC NR (14:30)
[2022-11-15] MEDS ORDERED: inSUlin (REGULAR) HUMAN 1 UNIT/0.01 ML (CHARGE PER UNIT) IV ONE (20:15)
[2022-11-15] MEDS ORDERED: amLODIPine 5 MG (NORVASC) TAB PO ONE (20:15)
[2022-11-15] MEDS ORDERED: NS IV 1000 ML 1,000 ML ONE (21:23)
[2022-11-15] MEDS: MONTELUKAST 10 MG (SINGULAIR) TAB PO SCH (21:38)
[2022-11-15] MEDS: NS IV 1000 ML 1,000 ML IV SCH (21:40)
[2022-11-15] MEDS: PANTOPRAZOLE 40 MG (PROTONIX) TAB PO SCH (22:33)
[2022-11-15] MEDS: ROSUVASTATIN 20 MG (CRESTOR) TABLET PO SCH (22:33)
[2022-11-15] MEDS: DULoxetine 30 MG (CYMBALTA) CAP PO SCH (22:33)
[2022-11-15] MEDS: HYDROXYCHLOROQUINE 200 MG (PLAQUENIL) TAB PO SCH (22:34)
[2022-11-15] MEDS: NYSTATIN CREAM (MYCOSTATIN) 30 GM TUBE TP SCH (22:35)
[2022-11-15] MEDS ORDERED: amLODIPine 5 MG (NORVASC) TAB ONE (22:37)
[2022-11-16] VITALS (8 sets, daily range): BP systolic 117–157; BP diastolic 68–91
[2022-11-16] MEDS: methylPREDNISolone 40 MG/ML (Solu-MEDROL) VIAL IV SCH ×2 (01:12→08:09)
[2022-11-16] MEDS: RT-ALBUTEROL/IPRATROPIUM 3 ML (DUONEB) VIAL INH SCH ×6 (03:03→22:06)
[2022-11-16] MEDS: NS IV 1000 ML 1,000 ML IV SCH (05:36)
[2022-11-16 06:18] LABS: BASOPHILS % (AUTO) 0 % (0-10); EOSINOPHILS % (AUTO) 0 % (0-10); HEMATOCRIT 42 % (35-52); HEMOGLOBIN 14.2 g/dL (11.5-16.0); LYMPHOCYTES # (AUTO) 1.5 10^3/uL (1.0-4.0); LYMPHOCYTES % (AUTO) 8 % (12-44); MEAN CORPUSCULAR HEMOGLOBIN 30 pg (25-34); MEAN CORPUSCULAR HGB CONC 34 g/dL (32-36); MEAN CORPUSCULAR VOLUME 89 fL (80-99); MEAN PLATELET VOLUME 9.4 fL (9.0-12.2); MONOCYTES # (AUTO) 0.7 10^3/uL (0.0-1.0); MONOCYTES % (AUTO) 4 % (0-12); NEUTROPHILS # (AUTO) 17.3 10^3/uL (1.8-7.8); NEUTROPHILS % (AUTO) 87 % (42-75); PLATELET COUNT 345 10^3/uL (130-400); WHITE BLOOD COUNT 19.8 10^3/uL (4.3-11.0)
[2022-11-16 06:30] LABS: ALBUMIN 3.7 GM/DL (3.2-4.5)
[2022-11-16 06:31] LABS: POTASSIUM 4.3 MMOL/L (3.6-5.0)
[2022-11-16 06:32] LABS: CALCIUM 9.1 MG/DL (8.5-10.1)
[2022-11-16 06:33] LABS: TOTAL PROTEIN 7.1 GM/DL (6.4-8.2)
[2022-11-16 06:35] LABS: BILIRUBIN,TOTAL 0.3 MG/DL (0.1-1.0)
[2022-11-16 06:36] LABS: PHOSPHORUS 3.6 MG/DL (2.3-4.7)
[2022-11-16 06:37] LABS: CREATININE SERUM 0.69 MG/DL (0.60-1.30)
[2022-11-16 06:39] LABS: MAGNESIUM 2.2 MG/DL (1.6-2.4)
[2022-11-16 07:39] LABS: BAND NEUTROPHILS 13 %; LYMPHOCYTES % (MANUAL) 5 %; MONOCYTES % (MANUAL) 1 %; NEUTROPHILS % (MANUAL) 81 %; PLATELET ESTIMATE OCC GIANT PLTS
[2022-11-16] MEDS: ENOXAPARIN 40 MG/0.4 ML (LOVENOX) SYR SC SCH ×2 (08:09→20:33)
[2022-11-16] MEDS: CLOPIDOGREL 75 MG (PLAVIX) TABLET PO SCH (08:10)
[2022-11-16] MEDS: ARTIFICAL TEARS 0.4 ML UNIT DOSE (REFRESH PLUS) OU SCH ×2 (08:10→20:33)
[2022-11-16] MEDS: DULoxetine 30 MG (CYMBALTA) CAP PO SCH ×2 (08:11→20:34)
[2022-11-16] MEDS: amLODIPine 5 MG (NORVASC) TAB PO SCH (08:11)
[2022-11-16] MEDS: VITAMIN D3 25 MCG (1,000 UNITS) TABLET PO SCH ×2 (08:11→20:35)
[2022-11-16] MEDS: LORATADINE (CLARITIN) 10 MG TAB PO SCH (08:11)
[2022-11-16] MEDS: ASPIRIN E.C. 81 MG (ECOTRIN) TAB PO SCH (08:11)
[2022-11-16] MEDS: DOCUSATE SODIUM 100 MG (COLACE) CAP PO SCH ×2 (08:48→20:04)
[2022-11-16] MEDS: SENNOSIDES 8.6 MG (SENOKOT) TAB PO SCH ×2 (08:48→20:04)
[2022-11-16] MEDS ORDERED: ASPIRIN E.C. 81 MG (ECOTRIN) TAB PO SCH (09:00)
[2022-11-16] MEDS: NYSTATIN CREAM (MYCOSTATIN) 30 GM TUBE TP SCH ×2 (10:01→20:34)
--- NOTE | 2022-11-16 11:37 | Progress Note - Hospitalist ---
JONES ABARCA 11/16/22 1137: Subjective HPI/CC On Admission Date Seen by Provider: Nov 16, 2022 Time Seen by Provider: 07:55 This is a 57 y/o female who presented to the ED yesterday with SOB that had been gradually increasing over the past two weeks. Her history is significant for VT with two stents placed in July of 2022, a working diagnosis of possible mixed connective tissue disease for which she takes plaquenil, asthma, and probable COPD. She also takes metformin for diabetes with her last a1c being 7.0%. She says since her VT in July she has completely stopped smoking after 40 years and has been going to cardiac rehab. She notes that at rehab she doesn't usually feel short of breath but feels SOB more often when exerting herself when doing errands/chores, she does endorse feeling some anxiety about being out and this occurring which is not present at cardiac rehab. She notes that since her heart attack she has some SOB while laying down and sleeps with pillows to help prop her up. She recently saw Dr. Tavares for these symptoms who was concerned that her "lungs were quiet" and he subsequently ordered PFTs which she has not completed yet. She has used an albuterol inhaler for exercise-induc ed asthma but this did not help before she came to the ED. She notes that she has had some low-grade fevers recently with chills but this is not unusual with her rheumatic diseases. She is currently scheduled to establish with a new backbreaker in [place], she says. She denies increased/change in sputum, denies increased cough, denies CP, or pain anywhere else, denies swelling in her extremities, and endorses some bloody/scabbed nasal passages when she blows her nose and diaphoresis/hot flashing (especially when SOB) and "fluttering/quivering deep in her left chest" associated with episodes of SOB. This morning she is sitting up in her recliner eating breakfast. She says her SOB has improved but is still requiring 3L N.C. She has no other complaints this AM. Last BM was yesterday morning, peeing without issue. Subjective/Events-last exam Pt is doing well this AM. She's sitting up in bed. Still on 2L N.C. but says she has been without any SOB since yesterday morning both with and without the O2. She says her sats still drop into the 80s if she takes the O2 off even though she is asymptomatic. She feels overall better. She is voiding without issues and feels she could have a BM but does not want to use the ICU room toilet. She had resistant hyperglycemic episodes yesterday afternoon/evening and required insulin drip to control overnight. She is eating/drinking without issue, N/V. She denies any pain. She says her joint/MSK chronic pains are much improved since she has been on IV steroids. Focused Exam Lactate Level 11/14/22 16:00: Lactic Acid Level 1.46 Objective Exam Vital Signs Vital Signs Date Time Temp Pulse Resp B/P (MAP) Pulse Ox O2 Delivery O2 Flow Rate FiO2 11/16/22 11:03 93 Nasal Cannula 2.00 11/16/22 10:00 93 20 158/97 (117) 11/16/22 07:41 36.0 11/14/22 22:04 28 Capillary Refill : Less Than 3 Seconds General Appearance: No Apparent Distress, WD/WN HEENT: PERRL/EOMI, Pharynx Normal Neck: Full Range of Motion, Non Tender, Supple Respiratory: Lungs Clear, Decreased Breath Sounds (Clear but overall decreased air movement still.) Cardiovascular: Regular Rate, Rhythm, No Edema, No Murmur Gastrointestinal: Non Tender, Soft Extremity: Non Tender, No Calf Tenderness, No Pedal Edema Neurologic/Psychiatric: Alert, Oriented x3 Skin: Normal Color, Warm/Dry Lymphatic: No Adenopathy Results/Procedures Lab Laboratory Tests 11/16/22 05:39 Patient resulted labs reviewed. Imaging: Reviewed Imaging Films, Reviewed Imaging Report Assessment/Plan Assessment and Plan Assess & Plan/Chief Complaint Assessment: This is a 57 y/o female who presented with increasing SOB over the past two weeks now HD2. Plan SOB AHRF COPD exacerbation vs CHF exacerbation -Troponin, BNP normal -CXR/CT c/w emphysema, significant air trapping -Exam c/w COPD exacerbation -IV solumedrol scheduled -Duonebs ordered - have been improving -Likely needs daily inhaler therapy -Claritin, montelukast ordered -Reduced O2 needs from admit -ABG 7.4/42/71/26 - respiratory acidosis compensated by metabolic alkalosis. -Continue to monitor respiratory status -Will get echo to evaluate EF, pulmonary artery pressures given hx of connective tissue disease, recent VT and LAU CAD VT - recent -Continuing plavix and ASA -Will get echo -EKG sinus rhythm w/ minimal ST depression -Consider consulting Cards to evaluate/follow with pt. -Can continue statin from home med list -No CP Diabetes mellitus Hyperglycemia -BGL in 400s s/p steroid admin -On metformin at home -Required insulin drip overnight, will plan to Dc this AM -Levemir 40u BID -Cont SSI -Will need close monitoring once steroids are weaned GERD -PPI, PRN antacids ordered Mixed Connective Tissue Disease -On hydroxychloroquine and pt reports good control with this -Can continue Dispo: Stable to transfer to med-surg and continue monitoring pending above mentioned studies. SMILEY SUAREZ DO 11/17/22 0500: Supervisory-Addendum Brief Verification & Attestation Participated in pt care: history, MDM, physical Personally performed: exam, history, MDM, supervision of care Care discussed with: Medical Student Procedures: n/a Results interpretation: Verified all documentation Verification and Attestation of Medical Student E/M Service A medical student performed and documented this service in my presence. I reviewed and verified all information documented by the medical student and made modifications to such information, when appropriate. I personally performed the physical exam and medical decision making. Smiley Suarez, Nov 17, 2022,05:00 JONES ABARCA Nov 16, 2022 11:37 SMILEY SUAREZ DO Nov 17, 2022 05:00
[2022-11-16] MEDS: inSUlin (REGULAR) HUMAN 1 UNIT/0.01 ML (CHARGE PER UNIT) SC PRN ×3 (13:21→20:34)
[2022-11-16] MEDS: predniSONE 20 MG TAB PO SCH (20:34)
[2022-11-16] MEDS: ROSUVASTATIN 20 MG (CRESTOR) TABLET PO SCH (20:34)
[2022-11-16] MEDS: MONTELUKAST 10 MG (SINGULAIR) TAB PO SCH (20:35)
[2022-11-16] MEDS: PANTOPRAZOLE 40 MG (PROTONIX) TAB PO SCH (20:35)
[2022-11-16] MEDS: HYDROXYCHLOROQUINE 200 MG (PLAQUENIL) TAB PO SCH (20:36)
[2022-11-16] MEDS ORDERED: MELOXICAM 7.5 MG (MOBIC) TABLET PO SCH (21:00)
[2022-11-16] MEDS ORDERED: methylPREDNISolone 40 MG/ML (Solu-MEDROL) VIAL IV SCH (21:00)
[2022-11-17] MEDS: RT-ALBUTEROL/IPRATROPIUM 3 ML (DUONEB) VIAL INH SCH ×3 (02:42→11:06)
[2022-11-17 03:14] VITALS: BP 122/67
[2022-11-17] MEDS: inSUlin (REGULAR) HUMAN 1 UNIT/0.01 ML (CHARGE PER UNIT) SC PRN ×3 (05:58→14:42)
[2022-11-17 06:22] LABS: BASOPHILS % (AUTO) 0 % (0-10); EOSINOPHILS % (AUTO) 0 % (0-10); HEMATOCRIT 41 % (35-52); HEMOGLOBIN 13.6 g/dL (11.5-16.0); LYMPHOCYTES # (AUTO) 1.4 10^3/uL (1.0-4.0); LYMPHOCYTES % (AUTO) 10 % (12-44); MEAN CORPUSCULAR HEMOGLOBIN 30 pg (25-34); MEAN CORPUSCULAR HGB CONC 33 g/dL (32-36); MEAN CORPUSCULAR VOLUME 90 fL (80-99); MEAN PLATELET VOLUME 9.5 fL (9.0-12.2); MONOCYTES # (AUTO) 0.5 10^3/uL (0.0-1.0); MONOCYTES % (AUTO) 4 % (0-12); NEUTROPHILS # (AUTO) 11.6 10^3/uL (1.8-7.8); NEUTROPHILS % (AUTO) 85 % (42-75); PLATELET COUNT 339 10^3/uL (130-400); WHITE BLOOD COUNT 13.7 10^3/uL (4.3-11.0)
[2022-11-17 06:35] LABS: ALBUMIN 3.5 GM/DL (3.2-4.5)
[2022-11-17 06:36] LABS: POTASSIUM 4.5 MMOL/L (3.6-5.0)
[2022-11-17 06:37] LABS: CALCIUM 8.8 MG/DL (8.5-10.1)
[2022-11-17 06:38] LABS: TOTAL PROTEIN 6.6 GM/DL (6.4-8.2)
[2022-11-17 06:40] LABS: BILIRUBIN,TOTAL 0.3 MG/DL (0.1-1.0)
[2022-11-17 06:41] LABS: CREATININE SERUM 0.84 MG/DL (0.60-1.30)
[2022-11-17 07:24] VITALS: BP 157/85
--- NOTE | 2022-11-17 08:01 | Occ Therapy Progress Note ---
Therapy Progress Note Patient is independent w/ ADLS and mobility. Discontinue OT CORINNA LIVINGSTON OT Nov 17, 2022 08:01
[2022-11-17] MEDS: ASPIRIN E.C. 81 MG (ECOTRIN) TAB PO SCH (08:18)
[2022-11-17] MEDS: predniSONE 20 MG TAB PO SCH (08:18)
[2022-11-17] MEDS: SENNOSIDES 8.6 MG (SENOKOT) TAB PO SCH (08:18)
[2022-11-17] MEDS: VITAMIN D3 25 MCG (1,000 UNITS) TABLET PO SCH (08:18)
[2022-11-17] MEDS: amLODIPine 5 MG (NORVASC) TAB PO SCH (08:19)
[2022-11-17] MEDS: CLOPIDOGREL 75 MG (PLAVIX) TABLET PO SCH (08:19)
[2022-11-17] MEDS: ENOXAPARIN 40 MG/0.4 ML (LOVENOX) SYR SC SCH (08:19)
[2022-11-17] MEDS: DULoxetine 30 MG (CYMBALTA) CAP PO SCH (08:19)
[2022-11-17] MEDS: ARTIFICAL TEARS 0.4 ML UNIT DOSE (REFRESH PLUS) OU SCH (08:19)
[2022-11-17] MEDS: LORATADINE (CLARITIN) 10 MG TAB PO SCH (08:19)
[2022-11-17] MEDS: NYSTATIN CREAM (MYCOSTATIN) 30 GM TUBE TP SCH (08:20)
[2022-11-17] MEDS: DOCUSATE SODIUM 100 MG (COLACE) CAP PO SCH (08:20)
[2022-11-17 11:22] VITALS: BP 157/85
[2022-11-17 11:25] VITALS: BP 144/88
[2022-11-17] MEDS ORDERED: IPRA3AMP31 INH (12:44)
[2022-11-17] MEDS ORDERED: LANC-659 MC (12:44)
[2022-11-17] MEDS ORDERED: MONT-40 PO (12:44)
[2022-11-17] MEDS ORDERED: BLOO-1483 MC (12:44)
[2022-11-17] MEDS ORDERED: AMLO-250 PO (12:44)
[2022-11-17] MEDS ORDERED: PRED10TA22 PO (12:44)
[2022-11-17] MEDS ORDERED: LORA10TA7 PO (12:44)
[2022-11-17] MEDS ORDERED: PEN-53 MC (12:44)
[2022-11-17] MEDS ORDERED: INSU100I88 SQ (12:44)
[2022-11-17] MEDS ORDERED: LANC1COM6 MC (12:44)
[2022-11-17] MEDS ORDERED: INSU100I14 SQ (12:44)
--- NOTE | 2022-11-17 12:44 | Discharge Summary ---
Discharge Summary Hospital Course Was the Problem List Reviewed?: Yes Problems/Dx: (1) COPD exacerbation Status: Acute (2) Hypoxia Status: Acute (3) Hyperglycemia Hospital Course Date of Admission: Nov 14, 2022 at 20:40 Admission Diagnosis : [facility]: 11/17/22 Discharge Diagnosis: [ ] Hospital Course: Hospital Course: This is a 57 y/o female who was admitted for SOB and admitted to the ICU on 11/14 originally for COPD exacerbation. She has a PMH significant for CAD, mixed connective tissue disease, HTN, HLD, and COPD. She had an [facility] requiring stents in July of 2022. She was cared for in the ICU with IV steroids and aggressive respiratory therapy, she never required more oxygen therapy other than nasal cannula. She initially improved greatly over the first hospital day but her BGL increased dramatically with administration of IV steroids into the 400s and insulin drip was required for control causing for another day of ICU care. On HD#2 she was off insulin drip and requiring minimal oxygen by nasal cannula and was transferred to the floor. Her IV medications were transitioned to PO and blood sugars further monitored. On HD#3 she was on 0.5L by Nasal cannula and was feeling much better and desired DC. She was tested for home O2 therapy prior to DC and plans were made to DC with inhalers and PO steroids and advised to closely FU with PCP for further management as well as arranging cardiology and pulmonology followup. Labs and Pending Lab Test: Laboratory Tests 11/16/22 16:31: Glucometer 250H 11/16/22 19:53: Glucometer 294H 11/17/22 05:16: Glucometer 295H 11/17/22 05:39: White Blood Count 13.7H, Red Blood Count 4.53, Hemoglobin 13.6, Hematocrit 41, Mean Corpuscular Volume 90, Mean Corpuscular Hemoglobin 30, Mean Corpuscular Hemoglobin Concent 33, Red Cell Distribution Width 12.7, Platelet Count 339, Mean Platelet Volume 9.5, Immature Granulocyte % (Auto) 1, Neutrophils (%) (Auto) 85H, Lymphocytes (%) (Auto) 10L, Monocytes (%) (Auto) 4, Eosinophils (%) (Auto) 0, Basophils (%) (Auto) 0, Neutrophils # (Auto) 11.6H, Lymphocytes # (Auto) 1.4, Monocytes # (Auto) 0.5, Eosinophils # (Auto) 0.0, Basophils # (Auto) 0.0, Immature Granulocyte # (Auto) 0.2H, Sodium Level 134L, Potassium Level 4.5, Chloride Level 103, Carbon Dioxide Level 22, Anion Gap 9, Blood Urea Nitrogen 18, Creatinine 0.84, Estimat Glomerular Filtration Rate 81, BUN/Creatinine Ratio 21, Glucose Level 304H, Mean Blood Glucose [Pending], Hemoglobin A1c [Pending], Calcium Level 8.8, Corrected Calcium 9.2, Total Bilirubin 0.3, Aspartate Amino Transf (AST/SGOT) 28, Alanine Aminotransferase (ALT/SGPT) 35, Alkaline Phosphatase 86, Total Protein 6.6, Albumin 3.5 11/17/22 09:20: Glucometer 320H Microbiology 11/14/22 Blood Culture - Preliminary, Resulted No growth Home Meds Active Reported Meloxicam 15 Mg Tablet 15 Mg PO HS [Tonic Wtr W/Quinine] 2-4 Oz PO HS Systane 0.3-0.4% Eye Drops (Propylene Glycol/Peg 400) 0.3 %-0.4 % Drops 1 Drop OU BID Aspirin EC (Aspirin) 81 Mg Tablet.dr 81 Mg PO DAILY Rosuvastatin Calcium 20 Mg Tablet 20 Mg PO HS Carvedilol 12.5 Mg Tablet 12.5 Mg PO BID Nystatin 100,000 Unit/Gram Cream..g. 1 Applic TOP BID APPLY TO FEET Clopidogrel (Clopidogrel Bisulfate) 75 Mg Tablet 75 Mg PO DAILY Pantoprazole Sodium 40 Mg Tablet.dr 40 Mg PO HS Hydroxychloroquine Sulfate 200 Mg Tablet 200 Mg PO HS Metformin HCl 500 Mg Tablet 500 Mg PO BID Vitamin D3 (Cholecalciferol (Vitamin D3)) 50 Mcg (2000 Unit) Tablet 50 Mcg PO BID Duloxetine HCl 30 Mg Capsule.dr 30 Mg PO BID Assessment/Pt Instructions pcp 1 week Discharge Planning: <30 minutes discharge planning Discharge Instructions Discharge Diet: ADA Diet Discharge Physical Examination Vital Signs Vital Signs Date Time Temp Pulse Resp B/P (MAP) Pulse Ox O2 Delivery O2 Flow Rate FiO2 11/17/22 11:25 36.2 80 18 144/88 (106) 93 Nasal Cannula 0.50 11/17/22 11:22 24 General Appearance: No Apparent Distress, WD/WN Respiratory: Lungs Clear, Normal Breath Sounds Allergies: Coded Allergies: Penicillins (Verified Allergy, Unknown, 08/03/22) Discharge Summary Date of Admission Nov 14, 2022 at 20:40 Date of Discharge Discharge Date: Nov 17, 2022 Admission Diagnosis AECOPD LEATHA SUAREZ DO Nov 17, 2022 12:44
--- NOTE | 2022-11-17 13:53 | Progress Note ---
JONES ABARCA 11/17/22 1353: Progress Note Subjective Hospital Course: This is a 57 y/o female who was admitted for SOB and admitted to the ICU on 11/14 originally for COPD exacerbation. She has a PMH significant for CAD, mixed connective tissue disease, HTN, HLD, and COPD. She had an OH requiring stents in July of 2022. She was cared for in the ICU with IV steroids and aggressive respiratory therapy, she never required more oxygen therapy other than nasal cannula. She initially improved greatly over the first hospital day but her BGL increased dramatically with administration of IV steroids into the 400s and insulin drip was required for control causing for another day of ICU care. On HD#2 she was off insulin drip and requiring minimal oxygen by nasal cannula and was transferred to the floor. Her IV medications were transitioned to PO and blood sugars further monitored. On HD#3 she was on 0.5L by Nasal cannula and was feeling much better and desired DC. She was tested for home O2 therapy prior to DC and plans were made to DC with inhalers and PO steroids and advised to closely FU with PCP for further management as well as arranging cardiology and pulmonology followup. Progress/Interval: Pt is sitting up in bed this AM working with nurse aid. She is in good spirits this AM and says she is doing a lot better. She denies any pain, SOB, CP, palpitations, N/V. She is eating well and having BMs and voids without any issues. 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 She feels ready to go home and feels that she will be able to manage using insulin and home O2 if needed since her BGLs are still elevated.. Objective Physical Exam Vital Signs Date Time Temp Pulse Resp B/P (MAP) Pulse Ox O2 Delivery O2 Flow Rate FiO2 11/17/22 11:25 36.2 80 18 144/88 (106) 93 Nasal Cannula 0.50 11/17/22 11:22 36.2 72 95 24 11/17/22 11:06 95 Nasal Cannula 0.50 11/17/22 08:00 95 Nasal Cannula 1.00 11/17/22 07:32 95 Nasal Cannula 1.00 11/17/22 07:24 36.2 72 18 157/85 (109) 94 Nasal Cannula 0.50 11/17/22 03:14 36.3 73 20 122/67 (85) 93 Room Air 11/17/22 02:42 88 Room Air 11/16/22 23:39 36.3 75 20 139/68 (91) 91 Room Air 11/16/22 22:12 95 Nasal Cannula 1.00 11/16/22 21:30 36.4 69 20 157/90 (112) 94 Room Air 11/16/22 21:30 94 Nasal Cannula 2.00 11/16/22 20:16 97 Nasal Cannula 2.00 11/16/22 19:53 36.1 11/16/22 19:31 97 Nasal Cannula 2.00 11/16/22 16:00 89 16 118/58 (78) 95 Nasal Cannula 2.00 11/16/22 15:00 90 23 141/95 (110) 89 Nasal Cannula 2.00 11/16/22 14:49 91 Nasal Cannula 2.00 11/16/22 14:00 90 31 158/105 (122) 94 Nasal Cannula 2.00 I & O 11/17/22 07:00 Intake Total 2720 ml Output Total 900 ml Balance 1820 ml Capillary Refill : Less Than 3 Seconds General Appearance: No Apparent Distress, WD/WN HEENT: PERRL/EOMI, Pharynx Normal Neck: Full Range of Motion, Non Tender, Supple Respiratory: Lungs Clear, Air movement is much increased today. Cardiovascular: Regular Rate, Rhythm, No Edema, No Murmur Gastrointestinal: Non Tender, Soft Extremity: Non Tender, No Calf Tenderness, No Pedal Edema Neurologic/Psychiatric: Alert, Oriented x3 Skin: Normal Color, Warm/Dry Lymphatic: No Adenopathy Laboratory Tests 11/16/22 05:39 11/17/22 05:39 Assessment/Plan Assessment and Plan Assess & Plan/Chief Complaint Assessment: This is a 57 y/o female who presented with increasing SOB over the past two weeks now HD2. Plan SOB AHRF COPD exacerbation vs CHF exacerbation -Troponin, BNP normal -CXR/CT c/w emphysema, significant air trapping -Exam c/w COPD exacerbation -IV solumedrol scheduled --> PO prednisone -Duonebs ordered - have been improving -Likely needs daily inhaler therapy -Claritin, montelukast ordered -Reduced O2 needs from admit -ABG 7.4/42/71/26 - respiratory acidosis compensated by metabolic alkalosis. -Continue to monitor respiratory status -Echo for given hx of connective tissue disease, recent OH and LAU -Echo with EF of 60-65% -Mild aortic stenosis -Pulm a. pressures 20-25 -Given clinical picture and results seems more heavily a pulmonary issue over cardiology at this time; PFTs would be recommended and pulmonology consult CAD OH - recent -Continuing plavix and ASA -EKG sinus rhythm w/ minimal ST depression -Consider consulting Cards to evaluate/follow with pt. -Can continue statin from home med list -No CP Diabetes mellitus Hyperglycemia -BGL in 400s s/p steroid admin -On metformin at home -Required insulin drip overnight, will plan to Dc this AM -Levemir 25u BID -Cont SSI -Will need close monitoring once steroids are weaned -Will send home on pre-prandial and long-acting insulin to follow-up with clinic as steroids are weaned GERD -PPI, PRN antacids ordered Mixed Connective Tissue Disease -On hydroxychloroquine and pt reports good control with this -Can continue DVT PPx: -Lovenox, SCDs Dispo: Stable for DC home with outpatient follow-up SMILEY SUAREZ DO 11/18/22 0512: Supervisory-Addendum Brief Verification & Attestation Participated in pt care: history, MDM, physical Personally performed: exam, history, MDM, supervision of care Care discussed with: Medical Student Procedures: n/a Results interpretation: Verified all documentation Verification and Attestation of Medical Student E/M Service A medical student performed and documented this service in my presence. I reviewed and verified all information documented by the medical student and made modifications to such information, when appropriate. I personally performed the physical exam and medical decision making. Smiley Suarez, Nov 18, 2022,05:12 JONES ABARCA Nov 17, 2022 13:53 SMILEY SUAREZ DO Nov 18, 2022 05:12
[2022-11-17] MEDS ORDERED: RT-ALBUTEROL/IPRATROPIUM 3 ML (DUONEB) VIAL INH SCH (15:00)
[2022-11-17 16:17] VITALS: BP 113/69
[2022-11-17 17:02] VITALS: BP 113/69
== END 2022-11-17 17:05 | disposition home or self-care (01) ==
LOC: EDUNIT# 15:42 → ER 15:43 → ICU 20:40 → 4TH 11-16 21:46
PROVIDERS: ADMIT Internal Medicine; ATTEND Internal Medicine
DX: J44.1 Chronic obstructive pulmonary disease with (acute) exacerbation (principal); J96.01 Acute respiratory failure with hypoxia; I25.10 Atherosclerotic heart disease of native coronary artery without angina pectoris; I21.9 Acute myocardial infarction, unspecified; M35.1 Other overlap syndromes; E11.65 Type 2 diabetes mellitus with hyperglycemia; K21.9 Gastro-esophageal reflux disease without esophagitis; Z79.899 Other long term (current) drug therapy; Z79.84 Long term (current) use of oral hypoglycemic drugs; Z87.891 Personal history of nicotine dependence; Z79.4 Long term (current) use of insulin
CPT/HCPCS: 36600; 71045; 71260; 80053 ×4; 82805; 82947 ×3; 83036; 83605; 83735 ×2; 83880; 84100; 84484; 85007 ×2; 85025 ×2; 85027 ×2; 85379; 85610; 85730; 87040; 87636; 93005; 93041; 94640 ×6; 94760; 94761; 96361 ×2; 96372 ×3; 96376 ×2; 99285; C8929; G0378 ×2; 36415; 93306

== ENCOUNTER 2022-11-23 10:32 | Outpatient (RCR) | payer MEDICARE ==
[~2022-11-23 10:32] MED LIST changes: +AMLO-250 PO; +BLOO-1483 MC; +CARV12.53 PO; +CLOP75TA28 PO; +INSU100I14 SQ; +INSU100I88 SQ; +IPRA3AMP31 INH; +LANC-659 MC; +LANC1COM6 MC; +LORA10TA7 PO; +MONT-40 PO; +NYST15CR35 TOP; +PEN-53 MC; +PRED10TA22 PO; +PROP15DR OU; +QUININE PO; +[UNRECOGNIZED DRUG - OTHER] PO
== END 2022-11-25 | disposition home or self-care (01) ==
LOC: CR 10:32
PROVIDERS: ATTEND Internal Medicine Cardiovascular Disease
DX: I25.2 Old myocardial infarction (principal)
CPT/HCPCS: 93798

== ENCOUNTER 2022-11-28 07:39 | Outpatient (RCR) | payer MEDICARE | END 2022-12-25 | disposition home or self-care (01) | LOC: CR 07:39 | PROVIDERS: ATTEND Internal Medicine Cardiovascular Disease | DX: Z29.8 Encounter for other specified prophylactic measures (principal); I25.2 Old myocardial infarction ==

== ENCOUNTER 2022-11-28 10:20 | Emergency (ER) | payer MEDICARE ==
--- NOTE | 2022-11-28 10:43 | ED General ---
General Chief Complaint: Cardiac/General Problems Stated Complaint: HIGH BLOOD PRESSURE Nursing Triage Note: PT AMB TO RM 10 WITH C/O HTN AT [facility] THIS MORNING AND SOB FOR A FEW DAYS. PT STATES SHE HAS PFT SCHEDULED THIS WEEK AND HAD AN AZ IN JULY Source of Information: Patient Exam Limitations: No Limitations History of Present Illness Date Seen by Provider: Nov 28, 2022 Time Seen by Provider: 10:28 Initial Comments 57-year-old female presents to the emergency department today for elevated blood pressures. She was at cardiac rehab and her blood pressure was 158/110. She is asymptomatic in regard to this and denies any changes in vision, headaches, chest pain. She has what sounds like a longstanding problem with shortness of breath since she had a heart attack in July. She did have a stent placed at that time. She states since then she has had increasing shortness of breath with exertion. This has been evaluated extensively both with an admission 2 weeks ago as well as outpatient treatment. She actually has pulmonary function testing and an appoint with the weatherization installer scheduled tomorrow. She has had a CT angiography to rule out pulmonary embolus. She is also followed up with her stove fitter. She denies any real changes in these symptoms. She does have as needed oxygen at home and uses a rescue inhaler. She does report she has connective tissue disease. All other systems reviewed and negative except documented per HPI. Voice recognition software was used to help create this chart Allergies and Home Medications Allergies Coded Allergies: Penicillins (Verified Allergy, Unknown, 08/03/22) Patient Home Medication List Home Medication List Reviewed: Yes Amlodipine Besylate (Amlodipine Besylate) 5 Mg Tablet, 5 MG PO DAILY Prescribed by: LEATHA SUAREZ on 11/17/22 1244 Aspirin (Aspirin EC) 81 Mg Tablet.dr, 81 MG PO DAILY, (Reported) Entered as Reported by: CHARLIE COLE on 11/15/22 1055 Blood-Glucose Meter (Blood Glucose Monitoring) 1 Each Each, EACH [facility], (DME) Prescribed by: LEATHA SUAREZ on 11/17/22 1244 Carvedilol (Carvedilol) 12.5 Mg Tablet, 12.5 MG PO BID, (Reported) Entered as Reported by: CHARLIE COLE on 11/15/22 1055 Cholecalciferol (Vitamin D3) (Vitamin D3) 50 Mcg (2000 Unit) Tablet, 50 MCG PO BID, (Reported) Entered as Reported by: KWESI LOCK on 08/04/22 0910 Clopidogrel Bisulfate (Clopidogrel) 75 Mg Tablet, 75 MG PO DAILY, (Reported) Entered as Reported by: ZENIA OLSEN on 11/15/22 0738 Duloxetine HCl (Duloxetine HCl) 30 Mg Capsule.dr, 30 MG PO BID, (Reported) Entered as Reported by: KWESI LOCK on 08/04/22 0910 Hydroxychloroquine Sulfate (Hydroxychloroquine Sulfate) 200 Mg Tablet, 200 MG PO HS, (Reported) Entered as Reported by: CHARLIE COLE on 08/04/22 105 Insulin Aspart (Novolog Flexpen) 100 Unit/Ml (3 Ml) Solution, 10 UNITS SQ AC Prescribed by: LEATHA SUAREZ on 11/17/22 124 Insulin Detemir (Levemir Flexpen) 100 Unit/Ml (3 Ml) Insuln.pen, 20 UNIT SQ BID Prescribed by: LEATHA SUAREZ on 11/17/22 124 Ipratropium/Albuterol Sulfate (Iprat-Albut 0.5-3(2.5) mg/3 ml) 0.5 Mg-3 Mg (2.5 Mg Base)/3 Ml Ampul.neb, 3 ML INH RTQ6HR Prescribed by: LEATHA SUAREZ on 11/17/22 124 Lancets (Advocate Lancets) 26 Gauge Each, EACH [facility], (DME) Prescribed by: LEATHA SUAREZ on 11/17/22 124 Lancets/Blood Glucose Strips (Lancet 30G-Glucose Test Strip) 30 Gauge Combo..pkg, EACH [facility], (DME) Prescribed by: LEATHA SUAREZ on 11/17/22 124 Loratadine (Loratadine) 10 Mg Tablet, 10 MG PO DAILY Prescribed by: LEATHA SUAREZ on 11/17/22 124 Meloxicam (Meloxicam) 15 Mg Tablet, 15 MG PO HS, (Reported) Entered as Reported by: CHARLIE COLE on 11/15/22 1057 Metformin HCl (Metformin HCl) 500 Mg Tablet, 500 MG PO BID, (Reported) Entered as Reported by: CHARLIE COLE on 08/04/22 1051 Montelukast Sodium (Montelukast Sodium) 10 Mg Tablet, 10 MG PO HS Prescribed by: LEATHA SUAREZ on 11/17/22 1244 Nystatin (Nystatin) 100,000 Unit/Gram Cream..g., 1 APPLIC TOP BID, (Reported) Entered as Reported by: CHARLIE COLE on 11/15/22 1055 Pantoprazole Sodium (Pantoprazole Sodium) 40 Mg Tablet.dr, 40 MG PO HS, (Reported) Entered as Reported by: CHARLIE COLE on 08/04/22 1051 Pen Needle, Diabetic (Advocate Pen Needle) 33 Gauge X 5/32" Dis.needle, EACH [facility], (DME) Prescribed by: LEATHA SUAREZ on 11/17/22 1244 Prednisone (Prednisone) 10 Mg Tab.ds.pk, 10 MG PO DAILY Prescribed by: LEATHA SUAREZ on 11/17/22 1244 Propylene Glycol/Peg 400 (Systane 0.3-0.4% Eye Drops) 0.3 %-0.4 % Drops, 1 DROP OU BID, (Reported) Entered as Reported by: CHARLIE COLE on 11/15/22 1055 Rosuvastatin Calcium (Rosuvastatin Calcium) 20 Mg Tablet, 20 MG PO HS, (Reported) Entered as Reported by: CHARLIE COLE on 11/15/22 1055 [Tonic Wtr W/Quinine] , 2-4 OZ PO HS, (Reported) Entered as Reported by: CHARLIE COLE on 11/15/22 1055 Review of Systems Review of Systems Constitutional: see HPI Past Mikznnc-Crixpi-Sfyjzj Hx Patient Social History Tobacco Use?: No Smoking Status: Former Smoker Substance use?: No Alcohol Use?: No Pt feels they are or have been: No Immunizations Up To Date Influenza Vaccine Up-to-Date: Yes; Up-to-Date First/Initial COVID19 Vaccinat: 2020 Second COVID19 Vaccination Marlon: 2020 Third COVID19 Vaccination Date: 2020 Past Medical History Surgery/Hospitalization HX: CORONARY STENT/ROTATOR CUFF REPAIR, AZ, DM, COPD, HTN Asthma Heart Attack Gastroesophageal Reflux Depression Family Medical History Reviewed Nursing Family Hx Physical Exam Vital Signs Vital Signs - First Documented 11/28/22 10:27 Temp 36.2 Pulse 85 Resp 20 B/P (MAP) 150/102 (118) Capillary Refill : Height, Weight, BMI Height: 5'2" Weight: 185lbs. oz. 83.734634kp; 40.79 BMI Method:Stated General Appearance: No Apparent Distress HEENT: Normal ENT Inspection, Pharynx Normal Neck: Full Range of Motion, Normal Inspection, Non Tender, Supple Respiratory: Chest Non Tender, Lungs Clear, Normal Breath Sounds, No Accessory Muscle Use, No Respiratory Distress Cardiovascular: Regular Rate, Rhythm, Normal Peripheral Pulses, Other (Blood pressure is 139/89) Gastrointestinal: Normal Bowel Sounds, Soft Extremity: Normal Capillary Refill Neurologic/Psychiatric: Alert, Oriented x3, No Motor/Sensory Deficits Skin: Normal Color, Warm/Dry Lymphatic: No Adenopathy Progress/Results/Core Measures Suspected Sepsis SIRS Temperature: Pulse: 85 Respiratory Rate: 20 Blood Pressure 150 /102 Mean: 118 Results/Orders Vital Signs/I&O 11/28/22 10:27 Temp 36.2 Pulse 85 Resp 20 B/P (MAP) 150/102 (118) Capillary Refill : Blood Pressure Mean: 118 Departure Communication (Admissions) Patient is hemodynamically stable. She has longstanding respiratory issues which are unchanged and she actually has pulmonary follow-up tomorrow. She has had extensive work-up and I do not see any further testing that would add to this in the acute setting. She did have elevated blood pressure readings while at cardiac rehab however her blood pressures have normalized here. She is on her chronic blood pressure medicines and no recent changes in this. She is asymptomatic with regard to this. No further testing indicated in the acute care setting at this time. She is discharged home in stable condition. Discussed with her that this may be a new normal after her AZ. She does have connective tissue disease, possible that she is misdiagnosed and has one that involves the lungs as well. Regardless she has pulmonary follow-up scheduled tomorrow and I think this is the best course of action for this as well. She is comfortable agreeable current plan of care. She is discharged in stable condition with close follow-up. Impression Primary Impression: Elevated blood pressure reading Disposition: HOME, SELF-CARE Condition: Stable Departure-Patient Inst. Referrals: [facility] (PCP/Family) Primary Care Physician XOCHITL MEHTA DO Nov 28, 2022 10:43
[2022-11-28 10:46] VITALS: BP 143/86
== END 2022-11-28 10:53 | disposition home or self-care (01) ==
LOC: EDUNIT# 10:20 → ER 10:22
DX: I10 Essential (primary) hypertension (principal); J44.9 Chronic obstructive pulmonary disease, unspecified; Z99.81 Dependence on supplemental oxygen; Z87.891 Personal history of nicotine dependence; Z79.899 Other long term (current) drug therapy
CPT/HCPCS: 99281

== ENCOUNTER → 2022-11-30 | Outpatient (CLI) | payer MEDICARE ==
[~2022-11-30] MED LIST changes: +RT-ALBUTEROL SULF 2.5 MG/3 ML PRE-MIX VIAL INH ONE
== END ==
LOC: RT 07:57
PROVIDERS: ATTEND Nurse Practitioner Family
DX: R06.00 Dyspnea, unspecified (principal)
CPT/HCPCS: 94060; 94726; 94729

== ENCOUNTER 2022-12-26 07:40 | Outpatient (RCR) | payer MEDICARE ==
[~2022-12-26 07:40] MED LIST changes: -RT-ALBUTEROL SULF 2.5 MG/3 ML PRE-MIX VIAL INH ONE
[2023-01-20] MEDS ORDERED: CLOP75TA28 PO (10:44)
[2023-01-20] MEDS ORDERED: RT-ALBUINH INH (10:44)
== END 2023-01-25 | disposition home or self-care (01) ==
LOC: CR 07:40
PROVIDERS: ATTEND Internal Medicine Cardiovascular Disease
DX: I25.2 Old myocardial infarction (principal)

== ENCOUNTER 2023-01-18 05:38 | Outpatient (CLI) | payer MEDICARE ==
[~2023-01-18] VITALS: Ht 157.5 cm; Wt 101.4 kg
[2023-01-20] MEDS ORDERED: RT-ALBUINH INH (10:44)
[2023-01-20] MEDS ORDERED: CLOP75TA28 PO (10:44)
== END 2023-01-20 10:46 | disposition home or self-care (01) ==
LOC: PREOP 05:38
PROVIDERS: ATTEND Surgery
DX: Z01.818 Encounter for other preprocedural examination (principal); Z12.11 Encounter for screening for malignant neoplasm of colon; K21.9 Gastro-esophageal reflux disease without esophagitis

== ENCOUNTER → 2023-02-07 | Outpatient (CLI) | payer MEDICARE ==
[~2023-02-07] MED LIST changes: +RT-ALBUINH INH
--- NOTE | 2023-02-07 13:44 | Diagnostic Imaging Report ---
INDICATION: Postmenopausal screening. COMPARISON: Normal FINDINGS: AP Spine L1-L4: [BMD (g/cm2): 1.474] [T-Score: 2.3] [Z-Score: 2.1] [BMD Previous: NA] [BMD % Change: NA] LT Hip Neck: [BMD (g/cm2): 1.173] [T-Score: 1.0] [Z-Score: 1.3] LT Hip Total: [BMD (g/cm2):1.218] [T-Score:1.7] [Z-Score: 1.6] [BMD Previous: NA] [BMD % Change: NA] RT Hip Neck: [BMD (g/cm2):1.220] [T-Score:1.3] [Z-Score:1.7] RT Hip Total: [BMD (g/cm2):1.240] [T-score:1.8] [Z-Score:1.8] [BMD Previous:NA] [BMD % Change:NA] *Indicates significant change from prior examination based on 95% confidence level. World Health Organization criteria for BMD interpretation classify patients as Normal (T-score at or above -1.0), Osteopenic (T-score between -1.0 and -2.5) or Osteoporotic (T-score at or below -2.5). LIMITATIONS AND MODIFICATION: None. FRACTURE RISK (FRAX SCORE): The ten year probability of (%): Major Osteoporotic Fracture: [NA] Hip Fracture: [NA] IMPRESSION: 1. Normal bone mineral density. 2. Baseline examination. 3. See below National Osteoporosis Foundation guidelines on when to potentially initiate pharmacologic therapy. Based on the National Osteoporosis Foundation Guidelines, pharmacologic treatment should be initiated in any of the following, unless clinical conditions suggest otherwise: * Any patient with prior fragility fracture of the hip or vertebrae. A spine fracture indicates 5X risk for subsequent spine fracture and 2X risk for subsequent hip fracture. * Osteoporosis (T-score <-2.5). * Postmenopausal women and men age 50 and older with low bone mass/osteopenia (T-score between -1.0 and -2.5) by DXA and 10-year major osteoporotic fracture greater than 20% or a 10-year probability of hip fracture greater than 3%. These fracture risks are supplied above in the FRAX score, if applicable. * Clinician judgement and/or patient preferences may indicate treatment for people with 10-year fracture probabilities above or below these levels. Dictated by: Dictated on workstation # [id number]
== END ==
LOC: RAD 12:31
PROVIDERS: ATTEND Nurse Practitioner Family
DX: Z13.820 Encounter for screening for osteoporosis (principal); Z87.891 Personal history of nicotine dependence; Z78.0 Asymptomatic menopausal state
CPT/HCPCS: 77080

== ENCOUNTER → 2023-02-13 | Outpatient (CLI) | payer MEDICARE | LOC: CARD 09:35 | PROVIDERS: ATTEND Internal Medicine Cardiovascular Disease | DX: I35.0 Nonrheumatic aortic (valve) stenosis (principal); I10 Essential (primary) hypertension; I25.10 Atherosclerotic heart disease of native coronary artery without angina pectoris | CPT/HCPCS: 93306 ==

== ENCOUNTER → 2023-04-19 | Outpatient (CLI) | payer MEDICARE ==
[~2023-04-19] MED LIST changes: +CATHETER FLUSH 10 ML SYR IVP PRN; +HYDR200T71 PO; +REGADENOSON 0.4 MG/5 ML SYR IV ONE; -ROSU20TA32 PO; +ROSU20TA73 PO
[2023-04-19 09:17] VITALS: BP 168/96
--- NOTE | 2023-04-19 15:00 | Cardiology Stress Test Report ---
Stress Test Report Date of Procedure/Referring: Date of Procedure: Apr 19, 2023 PCP Gloria Boykin Aprn Admitting Physician Admitting Physician: Attending Physician: Cathleen Schaffer MD Baseline Heart Rate: 79 Baseline Blood Pressure: Blood Pressure Systolic: 168 Blood Pressure Diastolic: 96 Baseline Vitals Vital Signs Date Time Temp Pulse Resp B/P (MAP) Pulse Ox O2 Delivery O2 Flow Rate FiO2 04/19/23 09:17 97 19 168/96 (120) 97 Baseline EKG: Baseline EKG: NSR Summary After explaining the procedure to the patient, she signed a consent and then brought to the stress nuclear laboratory. Patient received 0.4 mg Lexiscan for stress test, ECG, heart rate and blood pressure were monitored continuously. Resting and stress dose of radio tracer were injected, imaging was acquired and reviewed in short axis, horizontal long axis and vertical long axis views. TID: 1.07 SSS: 2 SDS: 2 EF: 64 Patient tolerated Lexiscan well No ischemia or infarction noted on SPECT images Normal left ventricular size, ejection fraction 64% Copy Copies To 1: [facility] [place] CATHLEEN SCHAFFER MD Apr 19, 2023 15:00
== END ==
LOC: CARD 07:16
PROVIDERS: ATTEND Internal Medicine Cardiovascular Disease
DX: I10 Essential (primary) hypertension (principal); I25.10 Atherosclerotic heart disease of native coronary artery without angina pectoris
CPT/HCPCS: 78452; 93017; A9502

== ENCOUNTER 2023-06-10 19:27 | Outpatient (CLI) | payer MEDICARE ==
[~2023-06-10 19:27] MED LIST changes: -CATHETER FLUSH 10 ML SYR IVP PRN; -REGADENOSON 0.4 MG/5 ML SYR IV ONE
== END 2023-06-11 06:21 ==
LOC: RT 19:27
PROVIDERS: ATTEND Nurse Practitioner Family
DX: G47.34 Idiopathic sleep related nonobstructive alveolar hypoventilation (principal); J43.2 Centrilobular emphysema
CPT/HCPCS: 95810

== ENCOUNTER → 2023-07-13 | Outpatient (CLI) | payer MEDICARE ==
[~2023-07-13] MED LIST changes: +RT-ALBUTEROL SULF 2.5 MG/3 ML PRE-MIX VIAL INH ONE
== END ==
LOC: RT 07:53
PROVIDERS: ATTEND Nurse Practitioner Family
DX: J43.2 Centrilobular emphysema (principal); J45.40 Moderate persistent asthma, uncomplicated
CPT/HCPCS: 94060; 94726; 94729